=== PATIENT | male | born 1970 | race Two or more races ===

== ENCOUNTER 2025-03-02 07:35 | Inpatient (IN) | payer BC, MEDICAID, SELFPAY ==
[2025-03-02] VITALS (17 sets, daily range): BP systolic 166–230; BP diastolic 102–135; PULSE 62–92; RESP 18–94; TEMP 36.4–36.8; O2SAT 93–97
--- NOTE | 2025-03-02 07:38 | EKG_ITS ---
[facility] Test Date: 2025-03-02 Pat Name: RACHEL DUMONT Department: Room: - Gender: Male Vp Clinical Research: : 1970 Requested By: ED Temporary Provider Order Number: [id number] Reading MD: ED Temporary Provider Measurements Intervals [place] Rate: 68 P: 31 WI: 202 QRS: -11 QRSD: 102 T: 132 QT: 419 QTc: 448 Interpretive Statements SINUS RHYTHM POSSIBLE INFERIOR MYOCARDIAL INFARCTION , PROBABLY OLD [30 ms Q WAVE IN II/aVF] Compared to ECG 08/10/2023 11:27:17 Sinus bradycardia no longer present First degree AV block no longer present Myocardial infarct finding still present /store/S0/[id number].pdf
--- NOTE | 2025-03-02 07:44 | XR_ITS ---
Examination: AP chest single view Technique: Sitting portable AP chest single view Exam date and time: March 02, 2025 0751 hrs. Comparison January 27, 2023 Indication: Chest pain beginning 4:00 AM this morning Findings: Normal heart size Lungs are clear. The osseous structures are intact Impression: No active disease
[2025-03-02 08:09] LABS: Basophils % (Auto) 0 % (0-2.5); Eosinophils # (Auto) 0.3 Thou/mm3 (0.0-0.5); Eosinophils % (Auto) 4 % (0-10); Hematocrit 47.1 % (41.0-53.0); Immature Granulocytes % (Auto) 0 % (0-0); Immature Granulocytes Auto 0.02 Thou/mm3 (0.00-0.00); Lymphocytes # (Auto) 2.3 Thou/mm3 (1.0-4.8); Lymphocytes % (Auto) 29 % (10-50); Mean Corpuscular HGB Conc 36.1 g/dl (31.0-37.0); Mean Corpuscular Hemoglobin 31.8 pg (25.0-35.0); Mean Corpuscular Volume 88 fL (80-100); Monocytes # (Auto) 0.4 Thou/mm3 (0.0-0.8); Monocytes % (Auto) 6 % (0-12); Neutrophils # (Auto) 4.8 Thou/mm3 (1.8-7.7); Neutrophils % (Auto) 61 % (37-80); Nucleated Red Blood Cell % 0 /100 WBC (0); Platelet Count 212 Thou/mm3 (140-440); Red Blood Count 5.35 Miln/mm3 (4.50-5.90); White Blood Count 7.9 Thou/mm3 (3.8-10.6)
--- NOTE | 2025-03-02 08:19 | PD.EDCHEST ---
ED Chest Pain RME/HPI General Chief Complaint: Chest Pain Stated Complaint: CHEST PAIN AROUND 10:00PM Time Seen by Provider: 03/02/25 08:19 Arrival date/time: 03/02/25 07:35 Limitations: no limitations RME / HPI RME / HPI narrative: DR. FLANAGAN MAIN ED EVALUATION: 54 year old male presents to the Emergency Department accompanied by his with complaint of chest pain onset yesterday 9 PM. He states his pain is described as pressure. He states last night when it started it was intermittent lasting a few seconds but it progressively became more constant. 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 PMHx: OK in the past, x6 cardiac stents, followed by Dr. Savage, hypercholesterolemia, diabetes on Janumet and metformin, and hypertension. Umbilical hernia. No known allergies. Family history is significant for angina and diabetes from mother and OK from grandfather. Social Hx: Former smoker, quit a few months ago. No alcohol or substance use. Related Data Home Medications ?Medication ?Instructions ?Recorded ?Confirmed sitagliptin phosphate 50 1 tab PO BID 07/15/23 03/02/25 mg-metformin 1,000 mg tablet (Janumet) dapagliflozin propanediol 5 mg 5 mg PO QDAY 08/11/23 03/02/25 tablet (Farxiga) Held on 03/02/25. Instructions: Doctor's Order aspirin 81 mg chewable tablet 81 mg PO QDAY 03/02/25 03/02/25 atorvastatin 80 mg tablet 80 mg PO QDAY 03/02/25 03/02/25 metoprolol tartrate 50 mg tablet 50 mg PO BID 03/02/25 03/02/25 nitroglycerin 0.4 mg sublingual 0.4 mg buccal .3x PRN chest pain 03/02/25 03/02/25 tablet Previous Rx's ?Medication ?Instructions ?Recorded amlodipine 10 mg tablet 10 mg PO QDAY 30 days #30 tabs 07/20/23 Held on 03/02/25. Instructions: Doctor's Order atorvastatin 40 mg tablet 40 mg PO QDAY 30 days #30 tabs 07/20/23 blood sugar diagnostic (Accu-Chek #50 ea 07/20/23 Tiffanie Plus test strips) blood-glucose meter (Accu-Chek #1 ea 07/20/23 Tiffanie Plus Meter) lancing device with lancets kit #1 ea 07/20/23 (Accu-Chek FastClix Lancing Device kit) ticagrelor 90 mg tablet (Brilinta) 90 mg PO BID #60 tabs 07/20/23 Held on 03/02/25. Instructions: Doctor's Order pen needle, diabetic 31 gauge x #100 ea 07/21/2301/26 (Pen Needle) Allergies Allergy/AdvReac Type Severity Reaction Status Date / Time No Known Allergies Allergy Verified 03/02/25 10:34 Review of Systems Review of Systems Systems Reviewed: All systems reviewed, normal except as documented Narrative Review of Systems: GEN: No fever, no chills, no weight loss EYES: No discharge, no visual changes, no pain HEENT: No ear pain, no congestion, no sore throat PULM: No shortness of breath, no cough, no congestion CV: + chest pain, no dyspnea on exertion, no palpitations GI: No nausea, no vomiting, no diarrhea, no pain, no constipation : No frequency, no urgency and no dysuria MUSC/SKEL: No joint pain, no back pain SKIN: No rash PSYCH: No hallucinations, no depression HEME/LYMPH: No easy bleeding or bruising tendencies NEURO: No weakness, no headache Past Medical History Past Medical History CARDIAC: Positive Angina, Coronary Artery Disease, Hypercholesterolemia and Hypertension RESPIRATORY: Positive Pneumonia ENDOCRINE: Positive Diabetes Mellitus Type 2 OTHER HISTORY: Positive Hospitalization Family History FAMILY HISTORY: Positive Family Cardiac Disorders (dad and grandpa open heart surgery) and Family Cancer (grandma) Surgical History SURGICAL: Positive Coronary Stent (2022 x 6) and Angiogram (2022) Social History SMOKING STATUS: Former smoker SECOND HAND EXPOSURE: No SUBSTANCE USE: amphetamines (Patient is a former amphetamine user, quit 9 months ago. ) and other (Remote history of meth and cocaine use) ALCOHOL: Never ED Exam General Limitations: Present no limitations General appearance: Present alert, in no apparent distress and anxious Head Head exam: Present atraumatic, normocephalic and normal inspection Eye Eye exam: Present normal appearance, PERRL and EOMI ENT ENT exam: Present normal exam, normal oropharynx and mucous membranes moist Neck Neck exam: Present normal inspection, full ROM and trachea midline Chest Chest inspection: Present normal inspection and symmetric chest wall rise Respiratory Respiratory exam: Present normal lung sounds bilaterally Cardiovascular Cardiovascular exam: Present regular rate, normal rhythm, normal heart sounds and +S2 (S2 split sound; S1, S3 normal) Abdominal Exam Abdominal exam: Present soft, normal bowel sounds and hernia (umbilical hernia that is reducible); Absent tenderness Extremities Exam Extremities exam: Present normal inspection and full ROM Back Exam Back exam: Present normal inspection and full ROM Neurological Exam Neurological exam: Present alert, oriented X3, CN II-XII intact and reflexes normal; Absent motor sensory deficit Psychiatric Psychiatric exam: Present normal affect and normal mood Skin Skin exam: Present warm, dry, intact and normal color Course Quality Measures none Orders Category Date Time Status COVID-19 Screening Questionnaire NOW Care 03/02/25 10:03 Active Asset Protection Representative NOW Care 03/02/25 07:43 Active Continuous Pulse Oximetry ONCE Care 03/02/25 08:31 Completed Decision to Admit X1 Care 03/02/25 10:03 Completed EKG (ED ONLY) *Do not use* NOW Care 03/02/25 07:38 Completed Insert IV STAT Care 03/02/25 08:31 Active Notify provider NOW Care 03/02/25 10:01 Active Consult to Cardiology Stat Cons 03/02/25 10:04 Ordered EKG (ED Only) Stat Exams 03/02/25 07:38 Draft XR chest 1V portable Stat Exams 03/02/25 07:44 Completed B-Type Natriuretic Peptide Stat Lab 03/02/25 08:02 Completed CBC Routine Lab 03/02/25 08:02 Completed CBC Stat Lab 03/02/25 08:02 Completed Comprehensive Metabolic Panel Stat Lab 03/02/25 08:02 Completed Drug Screen,Urine Stat Lab 03/02/25 08:35 Completed Magnesium Stat Lab 03/02/25 08:02 Completed Partial Thromboplastin Time AM DRAW Lab 03/04/25 05:00 Ordered Partial Thromboplastin Time Stat Lab 03/02/25 08:02 Completed Prothrombin Time with INR AM DRAW Lab 03/04/25 05:00 Ordered Prothrombin Time with INR Stat Lab 03/02/25 08:02 Completed Troponin I Stat Lab 03/02/25 08:02 Completed Aspirin Chew Med 03/02/25 08:31 Discontinued 324 mg PO X1 ONE Clopidogrel [Plavix] Med 03/02/25 09:55 Discontinued 300 mg PO X1 ONE Heparin Inj Med 03/02/25 10:01 Discontinued 4,000 unit IV X1 ONE Heparin/D5w 25K 250 ML Ivpb [Heparin in D5w Ivpb] Med 03/02/25 10:15 Active 25,000 unit in 250 ml IV 9.07 units/kg/hr Morphine Inj Med 03/02/25 08:35 Discontinued 4 mg IVP X1 ONE Nicardipine/Ns 20Mg Ivpb [Cardene Ivpb] Med 03/02/25 10:21 Active 20 mg in 200 ml IV 5 mg/hr Nitroglycerin [Nitrostat 1/150] Med 03/02/25 08:31 Active 0.4 mg SL Q5M PRN Ondansetron Inj [Zofran Inj] Med 03/02/25 08:31 Active 4 mg IV Q1HR PRN Sodium Chloride 0.9% 500 ml [Ns] 500 ml Med 03/02/25 08:31 Discontinued IV 999 mls/hr Vital Signs Vital signs: Vital Signs Temperature 97.8 F 03/02/25 07:40 Pulse Rate 68 03/02/25 07:40 Respiratory Rate 20 03/02/25 07:40 Blood Pressure 219/135 H 03/02/25 07:40 Pulse Oximetry (%) 95 03/02/25 07:40 Oxygen Delivery Method Room Air 03/02/25 07:40 Chest Pain MDM Narrative MDM Narrative:: I, Arlene Brand, am scribing for and in the presence of Dr. Flanagan. Patient given ASA, plavix, and heparin drip. Consulted with tour driver on-call Dr. Herbert. Will admit the patient for chest pain, coronary artery disease, and hypertensive emergency. Ordered Nicardipine drip for the patient's high blood pressure at 1023 hours. Patient data External records reviewed:: [facility] previous records (Reviewed right hip surgery by Dr. Manzo, dated 08/12/23.) Clinical information provided by:: patient and spouse Social determinants that could affect healthcare access:: other (specify) (Former smoker, quit a few months ago.) Patient has the following chronic illnesses:: PMHx: OK in the past, x6 cardiac stents, followed by Dr. Savage, hypercholesterolemia, diabetes on Janumet and metformin, and hypertension. Umbilical hernia. No known allergies. Family history is significant for angina and diabetes from mother and OK from grandfather. Social Hx: Former smoker, quit a few months ago. How is presenting disease/condition affected by chronic disease/condition?: exacerbated by Evaluation data The following diagnostics were reviewed and interpreted by me:: lab results, radiology exam(s) and EKG tracing(s) (EKG#1: EKG at 0741 hours. Interpreted by me: sinus rhythm, rate 68 BMP, possible inferior OK which is probably old, no acute changes, ME interval 202 ms, QRS 102 ms, QT/QTc 419/448, P-R-T axis 31, -11, and 132) Lab and/or radiology exams considered but not ordered:: none Interpretation Summary: Procedure(s): XR chest 1V portable Accession Number(s): [id number] cc: Heber (KELLIE),David HOPKINS; Rob Guaman MD~ Examination: AP chest single view Technique: Sitting portable AP chest single view Exam date and time: March 02, 2025 0751 hrs. Comparison January 27, 2023 Indication: Chest pain beginning 4:00 AM this morning Findings: Normal heart size Lungs are clear. The osseous structures are intact Impression: No active disease Dictated By: Rob Guaman MD Medications / Prescriptions Medications or Prescriptions considered but not ordered:: none Medication administrations:: Medication Administration History Acetaminophen (Acetaminophen 325 Mg Tablet) 650 mg PO Q6H PRN PRN Reason: Mild Pain 1-3 or Fever >100.3 Stop: 04/01/25 10:20 Aspirin (Aspirin Ec 81 Mg Tabec) 81 mg PO QDAY [facility] Stop: 04/02/25 08:59 Carvedilol (Carvedilol 3.125 Mg Tablet) 6.25 mg PO BIDWM [facility] Stop: 04/01/25 17:29 Last Admin: 03/02/25 19:42 Dose: 6.25 mg Documented By: EF Clopidogrel Bisulfate (Clopidogrel Bisulfate 75 Mg Tablet) 75 mg PO QDAY [facility] Stop: 04/02/25 08:59 Dextrose (Dextrose 50%-Water Inj 50 Ml Syringe) 50 ml IV Q15MIN PRN PRN Reason: BG <50 OR BG <70 & pt unresponsive Stop: 04/01/25 10:26 Dextrose (Dextrose 50%-Water Inj 50 Ml Syringe) 25 ml IV Q15MIN PRN PRN Reason: BG 50-70 responsive npo pt Stop: 04/01/25 10:26 Glucagon (Glucagon Inj 1 Mg Vial) 1 mg IM Q15MIN PRN PRN Reason: BG <70, and no IV access Hydralazine HCl (Hydralazine Inj 20 Mg/Ml Vial) 10 mg IVP Q4HR PRN PRN Reason: Hypertension Stop: 04/01/25 10:25 Last Admin: 03/02/25 20:34 Dose: 10 mg Documented By: Admin: 03/02/25 11:29 Dose: 10 mg Documented By: NERY Heparin Sodium/Dextrose (Heparin In D5w Ivpb) 25,000 unit in 250 mls @ 10.038 mls/hr IV .Q24H [facility]IONEL; Protocol Stop: 03/16/25 10:14 Last Titration: 03/03/25 06:00 Dose: 0 units/kg/hr, 0 mls/hr Documented By: Co-signed By: WB Admin: 03/03/25 04:27 Dose: 16 units/kg/hr, 17.708 mls/hr Documented By: Co-signed By: SS Titration: 03/03/25 04:27 Dose: Infused Documented By: Co-signed By: SS Titration: 03/03/25 03:00 Dose: 16 units/kg/hr, 17.708 mls/hr Documented By: Co-signed By: SA Titration: 03/02/25 20:35 Dose: 16 units/kg/hr, 17.708 mls/hr Documented By: AILYN Co-signed By: EE Admin: 03/02/25 11:51 Dose: 9.07 units/kg/hr, 10.038 mls/hr Documented By: NERY Co-signed By: NERIS Nicardipine/Sodium Chloride (Cardene Ivpb) 20 mg in 200 mls @ 50 mls/hr IV .Q4H PRN; Protocol PRN Reason: PER PROTOCOL Stop: 04/01/25 10:20 Insulin Human Lispro (Insulin Lispro (Admelog) 1 Unit/0.01 Ml Unit) 0 unit SC Q6HR LIONEL; Protocol Stop: 04/01/25 11:59 Last Admin: 03/03/25 05:52 Dose: 2 unit Documented By: Co-signed By: JALEESA Admin: 03/03/25 00:18 Dose: 2 unit Documented By: Co-signed By: WB Admin: 03/02/25 19:42 Dose: 2 unit Documented By: AILYN Co-signed By: LARON Admin: 03/02/25 12:37 Dose: 1 unit Documented By: NERY Co-signed By: ZEKE Morphine Sulfate (Morphine Sulf Inj 10 Mg/Ml Vial) 1 mg IVP Q4HR PRN PRN Reason: PAIN SCALE 7-10 (Severe Stop: 03/07/25 10:20 Last Admin: 03/03/25 05:44 Dose: 1 mg Documented By: Admin: 03/02/25 15:24 Dose: 1 mg Documented By: NERY Nitroglycerin (Nitroglycerin 0.4 Mg Subl Btl #25) 0.4 mg SL Q5M PRN PRN Reason: CHEST PAIN Last Admin: 03/02/25 09:03 Dose: 0.4 mg Documented By: NERY Ondansetron HCl (Ondansetron Inj 2 Mg/Ml Inj 2 Ml) 4 mg IV Q1HR PRN PRN Reason: PERSISTENT NAUSEA OR VOMITING Last Admin: 03/02/25 09:02 Dose: 4 mg Documented By: NERY Pantoprazole Sodium (Pantoprazole 40 Mg Tablet) 40 mg PO QDAY [facility] Stop: 04/01/25 10:29 Last Admin: 03/02/25 11:39 Dose: 40 mg Documented By: NERY Sennosides (Senna Tablet) 1 tab PO QDAY [facility]ION[facility]; Protocol Stop: 04/02/25 08:59 Discontinued Medications Aspirin (Aspirin 81 Mg Chew) 324 mg PO X1 ONE Stop: 03/02/25 08:32 Last Admin: 03/02/25 08:57 Dose: 324 mg Documented By: NERY Atorvastatin Calcium (Atorvastatin Calcium 20 Mg Tablet) 80 mg PO X1 ONE Stop: 03/02/25 10:29 Last Admin: 03/02/25 11:47 Dose: 80 mg Documented By: NERY Clopidogrel Bisulfate (Clopidogrel Bisulfate 75 Mg Tablet) 300 mg PO X1 ONE Stop: 03/02/25 09:56 Last Admin: 03/02/25 11:45 Dose: 300 mg Documented By: NERY Heparin Sodium (Porcine) (Heparin Sod Inj 5000 Unit/Ml Vial) 4,000 unit IV X1 ONE; Protocol Stop: 03/02/25 10:02 Last Admin: 03/02/25 11:33 Dose: 4,000 unit Documented By: NERY Co-signed By: AA Heparin Sodium (Porcine) (Heparin Sod Inj 5000 Unit/Ml Vial) 4,000 unit IVP X1 ONE Stop: 03/02/25 20:29 Last Admin: 03/02/25 20:35 Dose: 4,000 unit Documented By: EF Co-signed By: EE Hydromorphone HCl (Hydromorphone Inj 2 Mg/Ml Vial) 1 mg IVP X1 ONE Stop: 03/02/25 10:34 Last Admin: 03/02/25 11:20 Dose: 1 mg Documented By: NERY Sodium Chloride (Ns) 500 mls @ 999 mls/hr IV .Q31M ONE Stop: 03/02/25 09:01 Last Infusion: 03/02/25 10:28 Dose: Infused Documented By: Admin: 03/02/25 09:03 Dose: 999 mls/hr Documented By: NERY Metoprolol Tartrate (Metoprolol Tartrate 25 Mg Tablet) 25 mg PO BID [facility] Stop: 04/01/25 10:44 Last Admin: 03/02/25 11:37 Dose: 25 mg Documented By: NERY Morphine Sulfate (Morphine Sulf Inj 10 Mg/Ml Vial) 4 mg IVP X1 ONE Stop: 03/02/25 08:36 Last Admin: 03/02/25 08:59 Dose: 4 mg Documented By: NERY Potassium Chloride (Potassium Chloride 20 Meq Tabcr) 40 meq PO X1 ONE Stop: 03/02/25 14:54 Last Admin: 03/02/25 15:15 Dose: 40 meq Documented By: NERY see above Consultations Consultation(s) initiated? (list below): Yes Consultation #1 (Physician, Specialty, Details): Discussed test HPI, PMHx, lab, radiology results and/or management with Dr. Herbert. Following his recommendations, including giving ASA, plavix, and heparin drip. Will consult an admission to the hospitalist. Time: 09:58 Consultation #2 (Physician, Specialty, Details): Discussed test HPI, PMHx, lab, radiology results and/or management with hospitalist. Will admit for further evaluation and management. Accepts patient for admission. Time: 10:06 Diagnosis Chest Pain Differential Diagnosis: unstable angina pectoris, atypical chest pain, costochondritis and chest pain Most likely diagnosis given after review of the tests above:: Chest pain Coronary artery disease Hypertensive emergency Anxiety Admission Indicated Admission indicated?: indicated Admission Request Was there a request for admission?: Yes Admission Attestation Admission request attestation: Discussed case with [] from Hospitalist service regarding admission. Discussed patients ED course, exam findings, labs, and radiology results. The Hospitalist [agrees,declines] to accept the patient for admission. Disposition Plan Disposition Plan: Admit Critical Care Time Critical Care Time Critical Care Time: Yes Total Critical Care Time (min.): 60 Attestation: The high probability of sudden, clinically significant deterioration in the patient?s condition required the highest level of my preparedness to intervene urgently. The services I provided to this patient were to treat and/or prevent clinically significant deterioration. Services included the following: chart data review, reviewing nursing notes and/or old charts, documentation time, jd edwards consultant collaboration regarding findings and treatment options, medication orders and management, direct patient care, vital sign assessments and ordering, interpreting and reviewing diagnostic studies and lab tests. Aggregate critical care time includes only time during which I was engaged in work directly related to the patient?s care, as described above, whether at bedside or elsewhere in the Emergency Department. It did not include time spent performing other reported procedures or the services of residents, students, nurses or physician assistants. Discharge Plan Plan Patient Disposition: Admit Acute Care w/in Hospital Problem List Clinical Impression: Chest pain, Coronary artery disease, Anxiety, Hypertensive emergency
[2025-03-02 08:32] LABS: B-Type Natriuretic Peptide 175 pg/mL (0-100)
[2025-03-02 08:43] LABS: Partial Thromboplastin Time 27.6 Seconds (22.0-36.0); Prothrombin Time 11.2 Seconds (9.0-12.2)
[2025-03-02 08:50] LABS: Alanine Aminotransferase 29 U/L (10-49); Albumin, Serum 4.4 gm/dL (3.5-5.0); Albumin/Globulin Ratio 1.7 (1.2-2.2); Alkaline Phosphatase 119 U/L (46-116); Anion Gap 6 (7-16); Aspartate Amino Transferase 18 U/L (0-34); BUN/Creatinine Ratio 13 Ratio (12-20); Bilirubin,Total 1.6 mg/dL (0.3-1.2); Blood Urea Nitrogen 16 mg/dL (9-23); Calcium 9.2 mg/dL (8.3-10.6); Calcium (Corrected) 9.2 mg/dL (8.5-10.1); Carbon Dioxide 29.6 mMol/L (20.0-31.0); Chloride 104 mMol/L (98-107); Creatinine (Component) 1.2 mg/dL (0.6-1.3); Estimated Creatinine Clearance 87.3 mL/min (>60); Globulin 2.6 gm/dL (2.3-3.5); Glucose 217 mg/dL (74-106); Magnesium 1.9 mg/dL (1.6-2.6); Osmolality,Calculated 287 (275-295); Potassium 3.7 mMol/L (3.4-5.1); Sodium 140 mMol/L (136-145); eGFR > 60 See Note
[2025-03-02 08:52] LABS: Troponin I 0.052 ng/mL (0.0-0.045)
[2025-03-02] MEDS: ASPIRIN 81 MG CHEW 324 MG PO (08:57)
[2025-03-02] MEDS: MORPHINE SULF INJ 10 MG/ML VIAL 4 MG IVP (08:59)
[2025-03-02] MEDS: ONDANSETRON INJ 2 MG/ML INJ 2 ML 4 MG IV (09:02)
[2025-03-02] MEDS: SODIUM CHLORIDE 0.9% 500 ML 500 ML 999 ML IV (09:03)
[2025-03-02] MEDS: NITROGLYCERIN 0.4 MG SUBL BTL #25 SL (09:03)
[2025-03-02 09:54] LABS: Amphetamine/Methamp Scrn,U Negative (Negative); Barbiturate Screen,Urine Negative (Negative); Benzodiazepines Screen,Urine Negative (Negative); Benzoylecgonine Screen, Ur Negative (Negative); Fentanyl Screen,Urine Negative (Negative); Opiate Screen,Urine Negative (Negative); THC Screen,Urine Negative (Negative)
[2025-03-02 10:26] LABS: Basophils % (Auto) 0 % (0-2.5); Eosinophils # (Auto) 0.3 Thou/mm3 (0.0-0.5); Eosinophils % (Auto) 4 % (0-10); Hematocrit 48.5 % (41.0-53.0); Hemoglobin 16.9 g/dL (13.5-16.0); Immature Granulocytes % (Auto) 0 % (0-0); Immature Granulocytes Auto 0.02 Thou/mm3 (0.00-0.00); Lymphocytes # (Auto) 2.2 Thou/mm3 (1.0-4.8); Lymphocytes % (Auto) 29 % (10-50); Mean Corpuscular HGB Conc 34.8 g/dl (31.0-37.0); Mean Corpuscular Hemoglobin 31.6 pg (25.0-35.0); Mean Corpuscular Volume 91 fL (80-100); Monocytes # (Auto) 0.5 Thou/mm3 (0.0-0.8); Monocytes % (Auto) 6 % (0-12); Neutrophils # (Auto) 4.8 Thou/mm3 (1.8-7.7); Neutrophils % (Auto) 61 % (37-80); Nucleated Red Blood Cell % 0 /100 WBC (0); Platelet Count 209 Thou/mm3 (140-440); RDW Standard Deviation 43.8 fL (35.1-43.9); Red Blood Count 5.35 Miln/mm3 (4.50-5.90); White Blood Count 7.8 Thou/mm3 (3.8-10.6)
--- NOTE | 2025-03-02 11:19 | PC.CC ---
Patient is a 54 year-old male who presents to the hospital for Chest Pain. Yolanda CROFT made [id number] contact with patient. ASW introduced self, role, and reason for visit. Patient appeared alert and oriented to self, location, and situation. Patient was pleasant and engaged in initial assessment. Patient confirmed information on demographics and reports to living with , Torsten Reynolds . Patient reports that in the event he is unable to make his own medical decisions his would be his medical decision maker. Patient is employed at [employer]. At home patient ambulates independently and is able to complete his own ADLs. Patient does not require any DME. Patient receives primary care with Telma Snyder and uses [facility] for prescription medications. Upon discharge the patient plans to return back home. account services coordinator to follow up with any discharge needs.
[2025-03-02] MEDS: HYDROmorphone INJ 2 MG/ML VIAL 1 MG IVP (11:20)
[2025-03-02 11:21] LABS: Troponin I 1.937 ng/mL (0.0-0.045)
[2025-03-02] MEDS: hydrALAZINE INJ 20 MG/ML VIAL 10 MG IVP ×2 (11:29→20:34)
[2025-03-02] MEDS: HEPARIN SOD INJ 5000 UNIT/ML VIAL 4000 UNIT IV (11:33)
[2025-03-02] MEDS: METOPROLOL TARTRATE 25 MG TABLET PO (11:37)
[2025-03-02] MEDS: PANTOPRAZOLE 40 MG TABLET PO (11:39)
[2025-03-02] MEDS: CLOPIDOGREL BISULFATE 75 MG TABLET 300 MG PO (11:45)
[2025-03-02] MEDS: ATORVASTATIN CALCIUM 20 MG TABLET 80 MG PO (11:47)
[2025-03-02] MEDS: Heparin/D5w 25K 250 ML Ivpb 25,000 UNIT/250 ML BAG 10.038 UNIT IV (11:51)
[2025-03-02] MEDS: INSULIN LISPRO (AdmeLOG) 1 UNIT/0.01 ML UNIT SC ×2 (12:37→19:42)
--- NOTE | 2025-03-02 13:06 | PD.RESHP ---
Documentation for date of: 03/02/25 [facility] History of Present Illness History of present illness: CC: Chest pain Patient is a 54-year-old male with a past medical history of hypertension, hyperlipidemia, diabetes mellitus type 2 [id number] (Janumet), CAD with preserved ejection fraction-right coronary artery proximal, distal mid right coronary artery, and stent placement of the circumflex artery obtuse marginal branch. Patient presented to the emergency room on 03/02/2025 with a chief complaint of chest pain that came on suddenly overnight while at rest. Patient describes typical chest pain that was sharp and intermitted radiating from left chest to left arm. Pain is not elicited by deep palpation. Patient denied nausea or vomiting. Denied SOB. Denied any recent sick contacts. Patient follows Dr. Alvarez who performed PCI in 2022 for multi-vessel disease. ER Course: On arrival, patient was reported to have hypertensive urgency with a blood pressure of 219/135, HR 68, RR 20, spO 95% RA. Polycythemia noted on CBC w/ hgb of 16.9, Na 140, Potassium 3.7, BUN 16, Cr 1.2, GFR >60, Glucose 217, total bili 1.6, AST and ALT within normal limits. EKG sinus rhythm with possible q waves; Troponin 0.052, repeat 1.937, BNP 175. CXr: unremarkable Medication: Aspirin 324 mg PO, Morphine, Nitroglycerin 0.4 mg, and NS Cardiology consulted: follows Dr. Alvarez-->Dr. Guo covering for Dr. Alvarez. Admitted on 03/02/2025 for NSTEMI with chest pain. PMH: HTN HLD DM type II, non insulin dependent CAD, multi-vessel disease Past Surgical History: CABG (2022) Home Medication: Aspirin 81 Atorvastatin 80 mg Janumet Denied Amlodipine Social History: History of Alcohol Use & Former Smoker History of Meth Use Disorder Allergies: NOne Code Status: Full Code Review of Systems Review of Systems Narrative Review of Systems: General appearance: NO weight change, NO fatigue, NO weakness, NO fever, NO chills, NO night sweats, No cough Skin: NO rash, NO itching, NO sores, NO moles HEENT: NO Trauma, NO nausea, NO vomiting, NO visual changes, NO blurry vision, NO double vision, NO tinnitus, NO vertigo, NO ear discharge, NO rhinorrhea, NO stuffiness, NO sneezing, NO allergy, NO epistaxis. NO Hoarseness, NO sore throat, NO swollen neck. Cardiac: Yes, sharp chest pain. NO Palpitations, NO dyspnea on exertion, NO orthopnea, NO paroxysmal nocturnal dyspnea, NO edema Respiratory: NO Shortness of Breath, NO Wheezing, NO Cough, NO Sputum, NO hemoptysis GI:NO appetite, NO nausea, NO vomiting, NO dysphagia, NO changes in bowel frequency, NO stool color, NO diarrhea, NO constipation, NO hemetemesis, NO hemorrhoids, NO melena, NO hematechezia, NO abdominal pain, NO jaundice Renal: NO frequency, NO hesitancy, NO urgency, NO hematuria, NO nocturia, NO incontinence MSK: NO muscle weakness, NO gout, NO arthritis, NO muscle stiffness Neuro: NO headaches, NO tremors, NO weakness, NO paralysis, NO seizures, NO loss of consciousness, NO numbness. Hem: NO anemia, NO easy bruising/bleeding, NO petechiae, NO purpura Endo: NO heat/cold intolerance, NO excessive sweating, NO polyuria, NO polydipsia, NO polyphagia, NO thyroid problems, NO diabetes Pysch: NO mood, NO anxiety, NO depression Exam Vital Signs Temp Pulse Resp BP Pulse Ox O2 Del Method 98.3 F 77 22 H 189/110 H 94 L Room Air 03/02/25 12:22 03/02/25 12:22 03/02/25 12:22 03/02/25 12:22 03/02/25 12:03/02/25 12:22 Narrative Exam General Appearance: Alert & Oriented X3, well-nourished male who is lying in bed in mild discomfort HEENT: Skull symmetrical and atraumatic. Conjunctivae pin and moist. Pupils equal, round, reactive to light and accommodation (PERRL). External ear without lesion or discharge. Straight, nares patient, mucosa pink, no discharge. No thyroid nodule appreciated. No cervical lymphadenopathy. Cardio: Normal Rate and Rhythm with S1 and S2 heart sounds. No murmurs or extra heart sounds auscultated. No bruits on carotid auscultation. No peripheral edema or cyanosis. Lungs: Symmetric with good expansion. Chest and back non-tender. Breath sounds vesicular without crackles, wheezing or rhonchi Abdomen: Non-tender, Non-distended, Normal Reactive Bowel Sounds Neuro: Alert, cooperative, oriented to person, place, and time. Speech clear. CN grossly intact. Upper motor strength 5/5 and Lower motor strength 5/5. Sensation intact. Results: Labs 03/03/25 05:23 03/03/25 05:23 Labs: Short CBC 03/02/25 03/02/25 03/02/25 Range/Units 08:02 08:02 08:02 WBC 7.9 7.8 (3.8-10.6) Thou/mm3 Hgb 17.0 H 16.9 H (13.5-16.0) g/dL Hct 47.1 (41.0-53.0) % Plt Count (140-440) Thou/mm3 03/02/25 03/02/25 Range/Units 08:02 08:02 WBC (3.8-10.6) Thou/mm3 Hgb (13.5-16.0) g/dL Hct 48.5 (41.0-53.0) % Plt Count 212 209 (140-440) Thou/mm3 BMP 03/02/25 08:02 Sodium 140 Potassium 3.7 Chloride 104 Carbon Dioxide 29.6 BUN 16 Creatinine 1.2 Glucose 217 H Calcium 9.2 Cardiac Enzymes 03/02/25 03/02/25 Range/Units 08:02 10:38 Troponin I 0.052 H* 1.937 H* D (0.0-0.045) ng/mL Liver Function 03/02/25 Range/Units 08:02 Total Bilirubin 1.6 H (0.3-1.2) mg/dL AST 18 (0-34) U/L ALT 29 (10-49) U/L Alkaline Phosphatase 119 H (46-116) U/L Albumin 4.4 (3.5-5.0) gm/dL Quality Measures Quality Measures none Medications Home Medications and Allergies Home Medications ?Medication ?Instructions ?Recorded ?Confirmed ?Type sitagliptin phosphate 50 1 tab PO BID 07/15/23 03/02/25 History mg-metformin 1,000 mg tablet (Janumet) dapagliflozin propanediol 5 mg 5 mg PO QDAY 08/11/23 03/02/25 History tablet (Farxiga) Held on 03/02/25. Instructions: Doctor's Order aspirin 81 mg chewable tablet 81 mg PO QDAY 03/02/25 03/02/25 History atorvastatin 80 mg tablet 80 mg PO QDAY 03/02/25 03/02/25 History metoprolol tartrate 50 mg tablet 50 mg PO BID 03/02/25 03/02/25 History nitroglycerin 0.4 mg sublingual 0.4 mg buccal .3x PRN chest pain 03/02/25 03/02/25 History tablet Allergies Allergy/AdvReac Type Severity Reaction Status Date / Time No Known Allergies Allergy Verified 03/02/25 10:34 Visit Medications Acetaminophen (Acetaminophen 325 Mg Tablet) 650 mg PO Q6H PRN PRN Reason: Mild Pain 1-3 or Fever >100.3 Stop: 04/01/25 10:20 Aspirin (Aspirin Ec 81 Mg Tabec) 81 mg PO QDAY [facility] Stop: 04/02/25 08:59 Clopidogrel Bisulfate (Clopidogrel Bisulfate 75 Mg Tablet) 75 mg PO QDAY [facility] Stop: 04/02/25 08:59 Dextrose (Dextrose 50%-Water Inj 50 Ml Syringe) 50 ml IV Q15MIN PRN PRN Reason: BG <50 OR BG <70 & pt unresponsive Stop: 04/01/25 10:26 Dextrose (Dextrose 50%-Water Inj 50 Ml Syringe) 25 ml IV Q15MIN PRN PRN Reason: BG 50-70 responsive npo pt Stop: 04/01/25 10:26 Glucagon (Glucagon Inj 1 Mg Vial) 1 mg IM Q15MIN PRN PRN Reason: BG <70, and no IV access Hydralazine HCl (Hydralazine Inj 20 Mg/Ml Vial) 10 mg IVP Q4HR PRN PRN Reason: Hypertension Stop: 04/01/25 10:25 Last Admin: 03/02/25 11:29 Dose: 10 mg Heparin Sodium/Dextrose (Heparin In D5w Ivpb) 25,000 unit in 250 mls @ 10.038 mls/hr IV .Q24H [facility]; Protocol Stop: 03/16/25 10:14 Last Admin: 03/02/25 11:51 Dose: 9.07 units/kg/hr, 10.038 mls/hr Nicardipine/Sodium Chloride (Cardene Ivpb) 20 mg in 200 mls @ 50 mls/hr IV .Q4H PRN; Protocol PRN Reason: PER PROTOCOL Stop: 04/01/25 10:20 Insulin Human Lispro (Insulin Lispro (Admelog) 1 Unit/0.01 Ml Unit) 0 unit SC Q6HR [facility]; Protocol Stop: 04/01/25 11:59 Last Admin: 03/02/25 12:37 Dose: 1 unit Metoprolol Tartrate (Metoprolol Tartrate 25 Mg Tablet) 25 mg PO BID [facility] Stop: 04/01/25 10:44 Last Admin: 03/02/25 11:37 Dose: 25 mg Morphine Sulfate (Morphine Sulf Inj 10 Mg/Ml Vial) 1 mg IVP Q4HR PRN PRN Reason: PAIN SCALE 7-10 (Severe Stop: 03/07/25 10:20 Nitroglycerin (Nitroglycerin 0.4 Mg Subl Btl #25) 0.4 mg SL Q5M PRN PRN Reason: CHEST PAIN Last Admin: 03/02/25 09:03 Dose: 0.4 mg Ondansetron HCl (Ondansetron Inj 2 Mg/Ml Inj 2 Ml) 4 mg IV Q1HR PRN PRN Reason: PERSISTENT NAUSEA OR VOMITING Last Admin: 03/02/25 09:02 Dose: 4 mg Pantoprazole Sodium (Pantoprazole 40 Mg Tablet) 40 mg PO QDAY [facility] Stop: 04/01/25 10:29 Last Admin: 03/02/25 11:39 Dose: 40 mg Sennosides (Senna Tablet) 1 tab PO QDAY [facility]; Protocol Stop: 04/02/25 08:59 Discontinued Medications Aspirin (Aspirin 81 Mg Chew) 324 mg PO X1 ONE Stop: 03/02/25 08:32 Last Admin: 03/02/25 08:57 Dose: 324 mg Atorvastatin Calcium (Atorvastatin Calcium 20 Mg Tablet) 80 mg PO X1 ONE Stop: 03/02/25 10:29 Last Admin: 03/02/25 11:47 Dose: 80 mg Clopidogrel Bisulfate (Clopidogrel Bisulfate 75 Mg Tablet) 300 mg PO X1 ONE Stop: 03/02/25 09:56 Last Admin: 03/02/25 11:45 Dose: 300 mg Heparin Sodium (Porcine) (Heparin Sod Inj 5000 Unit/Ml Vial) 4,000 unit IV X1 ONE; Protocol Stop: 03/02/25 10:02 Last Admin: 03/02/25 11:33 Dose: 4,000 unit Hydromorphone HCl (Hydromorphone Inj 2 Mg/Ml Vial) 1 mg IVP X1 ONE Stop: 03/02/25 10:34 Last Admin: 03/02/25 11:20 Dose: 1 mg Sodium Chloride (Ns) 500 mls @ 999 mls/hr IV .Q31M ONE Stop: 03/02/25 09:01 Last Infusion: 03/02/25 10:28 Dose: Infused Morphine Sulfate (Morphine Sulf Inj 10 Mg/Ml Vial) 4 mg IVP X1 ONE Stop: 03/02/25 08:36 Last Admin: 03/02/25 08:59 Dose: 4 mg Assessment & Plan Plan Patient is a 54-year-old male with a past medical history of hypertension, hyperlipidemia, diabetes mellitus type 2 [id number] (Janumet), CAD w/ multi-vessel disease who was admitted don 03/02/2025 with typical chest pain w/ NSTEMI type I vs type II. #NSTEMI type I versus type II #Chest pain #CAD multi-vessel disease #Hyperlipidemia NSTEMI type I likely given typical chest pain, uptrending troponin levels, and previous history of [id number] disease who was recommended to follow up with CABG vs NSTEMI type II demand ischemia form hypertensive urgergency vs Unstable Angina. Diagnostics: EKG Q waves noted, sinus rhythm Plan -NPO after midnight -Morphine and Nitro for pain management -Atorvastatin 80 mg HS & Aspirin 81 mg Once daily, Aspirin 325 mg X 1 ER -Carvedilol 6.25 BID -Plavix 75 mg Qday -Lipid Panel AM -Consult Cardiology, appreciate recommendations, Dr. Wilkes #Hypertensive urgency #Hypertension Patient presented with hypertensive urgency on admission and denied taking any anti-hypertensive medication at home. Plan -JESUS/ARBS tomorrow, starting patient on carvedilol today -Monitor BP -Hydralazine PRN #Diabetes mellitus type 2, [id number] Past medical history of diabetes mellitus, non-insulin dependent with a previous A1c of 9.6 (07/2023). Patient's home medication of Janumet (metformin and sitagliptin). Plan -Hold Janumet -Sliding Scale -Monitor Fasting Blood glucose -A1c AM #Polycythemia Polycythemia likely secondary to body habitus vs hemoconcentrated vs less likely secondary to primary mutation such as SILVA . Continue to monitor Plan -Monitor -No acute intervention Health Maintenance: Disp: Pt is currently admitted to floors for further management of Dr. Pope FEN: cardiac-->NPO after midnight, cath on Monday DVT: heparin ACS Code: Full code - The patient's plan was discussed with attending Dr. Toshia Ruff MD PGY1 Internal Medicine Attending Provider Attestation/Addendum I reviewed labs, imaging, EKG, home medications and prior available records. Face to face evaluation was performed by me. I have personally examined the patient and discussed assessment and plan with the IM team. I reviewed the resident note and agree with the plan with exceptions as below. Hypertensive emergency Non-STEMI Uncontrolled diabetes mellitus with hyperglycemia Essential hypertension Start aspirin and Plavix Start hypertensive atorvastatin Start heparin drip She received IV hydralazine and was started on nicardipine. Weaned off nicardipine drip and started p.o. Coreg per cardiology recommendations Continue to trend troponin Started sliding scale insulin. Monitor fingersticks Cardiology consulted
--- NOTE | 2025-03-02 14:48 | ESCONSULT_ITS ---
HPI Data of Consult Requesting Physician: Bulmaro Pope MD Admitting Provider: Bulmaro Pope MD Attending Provider: Bulmaro Pope MD Primary Care Provider: SOPHY Fagan Consult Narrative History of present illness: Ramón Orourke is a 54-year-old male with medical history of multivessel CAD (status-post stenting of LCx and RCA in [address] Alvarez), hypertension, hyperlipidemia, and type 2 diabetes who presents on 03/02/2025 with chest pain. States that on evening of 03/01, he was at work, lifted a box and started to feel left-sided chest pressure that did not radiate and subsided with rest. Afterwards, he continued working and chest discomfort would return with activity and again subsided with rest.also states that he would take nitroglycerin that would also alleviate discomfort. Following morning, patient woke up with what he described now as chest pain that radiated to his left arm, 9/10 in intensity and did not subside, prompting him to visit the ED. Of note, patient underwent LHC in [address] Alvarez and found to have multivessel disease and underwent stenting of LCx and RCA. Per patient, he would follow-up with Dr. Alvarez monthly and last patient was 4 months ago and has not been able to return due to insurance issues. Additionally, patient states that he is not 100% compliant with his medications. In the ED, patient now states that he is short of breath after walking to and from the bathroom but denies having experienced nausea, vomiting, diaphoresis, palpitations, PND, orthopnea, or bilateral lower extremity swelling since onset of chest discomfort. In ED, initial vitals showed BP 219/135, saturating 94% on room air, afebrile, pulse 68. CBC unremarkable, coag panel unremarkable, CHEM panel showed troponin 0.05 -> 1.9, BNP 175, glucose 217. EKG showed NSR with T wave inversions in leads I and aVL (present in EKG from 2022), ? incomplete LBBB in lead V6. Given loading dose aspirin 324 mg x 1, clopidogrel 300 mg x 1, heparin drip started, morphine 4 mg x 1, morphine 1 mg x 1, Dilaudid 1 mg x 1, nitroglycerin x 1, metoprolol tartrate 25 mg, hydralazine 10 mg IV. Admitted and cardiology consulted for ACS workup. PMHx: multivessel CAD (status-post stenting of LCx and RCA in [address] 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 [employer] PSHx: LCH in 2022 cc:: cc: Bulmaro Pope MD Review of Systems Review of Systems Systems Reviewed: All systems reviewed, normal except as documented Exam Vital Signs Temp Pulse Resp BP Pulse Ox O2 Del Method 98.3 F 77 22 H 189/110 H 94 L Room Air 03/02/25 12:22 03/02/25 12:22 03/02/25 12:22 03/02/25 12:22 03/02/25 12:22 03/02/25 12:22 Narrative Exam General: AOx3, mild distress, able to speak full sentences on roomair HEENT: NC/AT, mucous membranes moist, bilateral sclera anicteric Cardiovascular: regular rate and rhythm, S1/S2 present, no murmurs appreciated Pulmonary: clear to auscultation bilaterally, no rales/rhonchi/wheezes Abdominal: soft, non-tender, non-distended, no rebound/guarding, normal bowel sounds present Musculoskeletal: normal ROM, no peripheral edema Skin: warm and dry, intact, no rashes Neuro: CN II-XII intact, no focal deficits Results Labs 03/02/25 08:02 03/02/25 08:02 Labs: Short CBC 03/02/25 03/02/25 03/02/25 Range/Units 08:02 08:02 08:02 WBC 7.9 7.8 (3.8-10.6) Thou/mm3 Hgb 17.0 H 16.9 H (13.5-16.0) g/dL Hct 47.1 (41.0-53.0) % Plt Count (140-440) Thou/mm3 03/02/25 03/02/25 Range/Units 08:02 08:02 WBC (3.8-10.6) Thou/mm3 Hgb (13.5-16.0) g/dL Hct 48.5 (41.0-53.0) % Plt Count 212 209 (140-440) Thou/mm3 BMP 03/02/25 08:02 Sodium 140 Potassium 3.7 Chloride 104 Carbon Dioxide 29.6 BUN 16 Creatinine 1.2 Glucose 217 H Calcium 9.2 Cardiac Enzymes 03/02/25 03/02/25 Range/Units 08:02 10:38 Troponin I 0.052 H* 1.937 H* D (0.0-0.045) ng/mL Liver Function 03/02/25 Range/Units 08:02 Total Bilirubin 1.6 H (0.3-1.2) mg/dL AST 18 (0-34) U/L ALT 29 (10-49) U/L Alkaline Phosphatase 119 H (46-116) U/L Albumin 4.4 (3.5-5.0) gm/dL Quality Measures Quality Measures none Medications Home Medications and Allergies Home Medications ?Medication ?Instructions ?Recorded ?Confirmed ?Type sitagliptin phosphate 50 1 tab PO BID 07/15/23 History mg-metformin 1,000 mg tablet (Janumet) dapagliflozin propanediol 5 mg 5 mg PO QDAY 08/11/23 0 08/11/23 History tablet (Farxiga) aspirin 81 mg chewable tablet 03/02/25 History atorvastatin 80 mg tablet mg 03/02/25 History nitroglycerin 0.4 mg sublingual mg buccal 03/02/25 Hi story tablet Allergies Allergy/AdvReac Type Severity Reaction Status Date / Time No Known Allergies Allergy Verified 03/02/25 10:34 Visit Medications Acetaminophen (Acetaminophen 325 Mg Tablet) 650 mg PO Q6H PRN PRN Reason: Mild Pain 1-3 or Fever >100.3 Stop: 04/01/25 10:20 Aspirin (Aspirin Ec 81 Mg Tabec) 81 mg PO QDAY [facility] Stop: 04/02/25 08:59 Carvedilol (Carvedilol 3.125 Mg Tablet) 6.25 mg PO BIDWM [facility] Stop: 04/01/25 17:29 Clopidogrel Bisulfate (Clopidogrel Bisulfate 75 Mg Tablet) 75 mg PO QDAY [facility] Stop: 04/02/25 08:59 Dextrose (Dextrose 50%-Water Inj 50 Ml Syringe) 50 ml IV Q15MIN PRN PRN Reason: BG <50 OR BG <70 & pt unresponsive Stop: 04/01/25 10:26 Dextrose (Dextrose 50%-Water Inj 50 Ml Syringe) 25 ml IV Q15MIN PRN PRN Reason: BG 50-70 responsive npo pt Stop: 04/01/25 10:26 Glucagon (Glucagon Inj 1 Mg Vial) 1 mg IM Q15MIN PRN PRN Reason: BG <70, and no IV access Hydralazine HCl (Hydralazine Inj 20 Mg/Ml Vial) 10 mg IVP Q4HR PRN PRN Reason: Hypertension Stop: 04/01/25 10:25 Last Admin: 03/02/25 11:29 Dose: 10 mg Heparin Sodium/Dextrose (Heparin In D5w Ivpb) 25,000 unit in 250 mls @ 10.038 mls/hr IV .Q24H LIONEL; Protocol Stop: 03/16/25 10:14 Last Admin: 03/02/25 11:51 Dose: 9.07 units/kg/hr, 10.038 mls/hr Nicardipine/Sodium Chloride (Cardene Ivpb) 20 mg in 200 mls @ 50 mls/hr IV .Q4H PRN; Protocol PRN Reason: PER PROTOCOL Stop: 04/01/25 10:20 Insulin Human Lispro (Insulin Lispro (Admelog) 1 Unit/0.01 Ml Unit) 0 unit SC Q6HR LIONEL; Protocol Stop: 04/01/25 11:59 Last Admin: 03/02/25 12:37 Dose: 1 unit Morphine Sulfate (Morphine Sulf Inj 10 Mg/Ml Vial) 1 mg IVP Q4HR PRN PRN Reason: PAIN SCALE 7-10 (Severe Stop: 03/07/25 10:20 Nitroglycerin (Nitroglycerin 0.4 Mg Subl Btl #25) 0.4 mg SL Q5M PRN PRN Reason: CHEST PAIN Last Admin: 03/02/25 09:03 Dose: 0.4 mg Ondansetron HCl (Ondansetron Inj 2 Mg/Ml Inj 2 Ml) 4 mg IV Q1HR PRN PRN Reason: PERSISTENT NAUSEA OR VOMITING Last Admin: 03/02/25 09:02 Dose: 4 mg Pantoprazole Sodium (Pantoprazole 40 Mg Tablet) 40 mg PO QDAY LIONEL Stop: 04/01/25 10:29 Last Admin: 03/02/25 11:39 Dose: 40 mg Sennosides (Senna Tablet) 1 tab PO QDAY [facility]; Protocol Stop: 04/02/25 08:59 Discontinued Medications Aspirin (Aspirin 81 Mg Chew) 324 mg PO X1 ONE Stop: 03/02/25 08:32 Last Admin: 03/02/25 08:57 Dose: 324 mg Atorvastatin Calcium (Atorvastatin Calcium 20 Mg Tablet) 80 mg PO X1 ONE Stop: 03/02/25 10:29 Last Admin: 03/02/25 11:47 Dose: 80 mg Clopidogrel Bisulfate (Clopidogrel Bisulfate 75 Mg Tablet) 300 mg PO X1 ONE Stop: 03/02/25 09:56 Last Admin: 03/02/25 11:45 Dose: 300 mg Heparin Sodium (Porcine) (Heparin Sod Inj 5000 Unit/Ml Vial) 4,000 unit IV X1 ONE; Protocol Stop: 03/02/25 10:02 Last Admin: 03/02/25 11:33 Dose: 4,000 unit Hydromorphone HCl (Hydromorphone Inj 2 Mg/Ml Vial) 1 mg IVP X1 ONE Stop: 03/02/25 10:34 Last Admin: 03/02/25 11:20 Dose: 1 mg Sodium Chloride (Ns) 500 mls @ 999 mls/hr IV .Q31M ONE Stop: 03/02/25 09:01 Last Infusion: 03/02/25 10:28 Dose: Infused Metoprolol Tartrate (Metoprolol Tartrate 25 Mg Tablet) 25 mg PO BID [facility] Stop: 04/01/25 10:44 Last Admin: 03/02/25 11:37 Dose: 25 mg Morphine Sulfate (Morphine Sulf Inj 10 Mg/Ml Vial) 4 mg IVP X1 ONE Stop: 03/02/25 08:36 Last Admin: 03/02/25 08:59 Dose: 4 mg Assessment & Plan Plan Ramón Orourke is a 54-year-old male with medical history of multivessel CAD (status-post stenting of LCx and RCA in [address] Alvarez), hypertension, hyperlipidemia, and type 2 diabetes who presents on 03/02/2025 with chest pain. Admitted and cardiology consulted for ACS workup. #ACS workup, NSTEMI versus demand ischemia #History of multivessel CAD status post stents in LCx and RCA in 2022 Patient presents with typical cardiac chest pain that is described as pressure and pain, left-sided that radiates to left arm, worsened with exertion, improved with rest/nitroglycerin. Has history of multivessel CAD status post stenting in LCx and RCA in [address] Alvarez as well as strong cardiac family history. EKG showed T wave inversions in leads I and aVL but were present in 2022, ? incomplete LBBB in lead V6, but otherwise no ST changes. Initial troponin of 0.05 and up trended to 1.9. However, patient also presented with hypertensive crisis with initial BP of 219/135. Given history of multivessel CAD as well as strong cardiac family history, will workup for ACS as patient given aspirin 324 mg, clopidogrel 300 mg, and started on heparin drip. ? Continue heparin drip ? Aspirin 81 mg daily, clopidogrel 75 mg p.o. daily ? Atorvastatin 80 mg daily ? Carvedilol 6.25 mg twice daily ? Morphine and nitroglycerin as needed for pain ? N.p.o. after midnight ? Trend troponins until negative delta #Hypertensive emergency Initial BP of 219/135 and elevated troponins that likely due to ACS but may be contributed to by hypertensive crisis. Has home Rx of metoprolol tartrate 50 mg twice daily. ? Recommend to reduce MAP gradually by 10-20% in first hour and 5-15% over next 23 hours ? Or target blood pressure of <180/<120 mmHg for first hour and <160/<110 mmHg for next 23 hours ? Carvedilol 6.25 mg p.o. twice daily ? Nicardipine 20 mg IV PRN #Hyperlipidemia ? Follow-up lipid panel ? Start atorvastatin 80 mg daily # Type 2 diabetes mellitus ? Follow-up A1c ? Blood sugar goal of 140-180 ? SSI, Accu-Cheks every 6 hours ----- Plan discussed with attending physician Dr. Sari Beal MD PGY-1 Internal Medicine Attending Provider Attestation/Addendum I have personally seen and examined the patient separately on the above date of service and discussed the plan of care with the resident. I reviewed the resident Dr. Jasvir Beal consultation progress note and agree with the resident findings and plan in the note above and have also edited the documentation to reflect my findings and plan. A 54-year-old male with a past medical history of multivessel CAD status post PCI with 2 TONYA stents in the proximal and mid RCA, 2 TONYA stents in the proximal and mid OM1 on 07/19/2023, PCI of the ramus or diagonal and PCI of the LAD on 08/08/2023 with residual severe disease of the distal RCA, 100% occluded RPL as well as 90% stenosis of small PDA, significant family history of heart disease including NC CHF and valve replacement, smoker with at least [id number] smoking history, diabetes mellitus type 2 essential hypertension, hyperlipidemia, morbid obesity, noncompliant medications and doctor visits presented to the emergency department for further evaluation of chest pain. Patient started feeling left-sided pressure when he was at work lifting a box but did not radiate and was 9/10 in intensity relieved with rest. Patient tried to work again but then again the symptoms recovered return with activity and then subsided with rest. Denies any kind of palpitations or orthopnea or PND or leg swelling or dizziness or syncope or fall. Denies any cough fever or chills. In ED, initial vitals showed BP 219/135, saturating 94% on room air, afebrile, pulse 68. CBC unremarkable, coag panel unremarkable, CHEM panel showed troponin 0.05 -> 1.9, BNP 175, glucose 217. EKG showed NSR with T wave inversions in leads I and aVL (present in EKG from 2022), Given loading dose aspirin 324 mg x 1, clopidogrel 300 mg x 1, heparin drip started, morphine 4 mg x 1, morphine 1 mg x 1, Dilaudid 1 mg x 1, nitroglycerin x 1, metoprolol tartrate 25 mg, hydralazine 10 mg IV. Cardiology consulted for elevated troponins. Assessment and plan: 1. NSTEMI type I > type II-elevated troponins 2. CAD s/p PCI with 2 TONYA stents in the proximal and mid RCA, 2 TONYA stents in the proximal and mid OM1 on 07/19/2023, PCI of the ramus or diagonal and PCI of the LAD on 08/08/2023 with residual severe disease of the distal RCA, 100% occluded RPL as well as 90% stenosis of small PDA, 3. Hypertensive urgency 4. Type 2 diabetes mellitus 5. Hyperlipidemia 6. Significant family history of heart disease including NC CHF and valve replacement, smoker with at least [id number] smoking history,morbid obesity, noncompliant medications and doctor visits Patient presented with typical chest pain which was worse with exertion and improved with rest and EKG showed some T wave inversions in leads I and aVL which were present before but the troponins are significantly increasing up to 1.9. Patient denies any Chest pain or chest pressure at the present point of time and is hemodynamically stable. Patient upon further questioning informed that he does take his aspirin on and off and he is not completely strict with it. He is not sure if he is on Brilinta or Plavix. Discussed with Dr. Alvarez and he did not follow-up with him for more than 1 year. Unclear if patient is even taking his medications. Started the patient on heparin drip per ACS protocol Aspirin 325 mg x 1 given and restart aspirin 81 mg once daily Would prefer Brilinta or clopidogrel for the patient given his multiple stents as noted above High intensity statin Lipitor 80 mg once daily Telemetry monitoring Check TSH A1c lipid profile for further cardiac restratification Echocardiogram to evaluate LV function RV function, diastolic function and also to rule out any kind of regional wall motion abnormalities. Patient's blood pressure was high on admission and his hypertensive urgency and patient probably not taking all his medications regularly we will start with Coreg 6.25 mg twice daily and will continue to uptitrate. Patient's renal function appears to be normal and will also start ARB with losartan 50 mg once daily. Management of rest of the medical conditions as per primary team and other consultants. Thank you for the consult and allowing me to participate in the care of the patient. Cardiology will continue to follow. Alfie Guo M.D. Interventional Cardiology
[2025-03-02] MEDS: POTASSIUM CHLORIDE 20 mEq TABCR 40 MEQ PO (15:15)
[2025-03-02] MEDS: MORPHINE SULF INJ 10 MG/ML VIAL IVP (15:24)
[2025-03-02 17:57] LABS: Troponin I 10.983 ng/mL (0.0-0.045)
[2025-03-02] MEDS: carVEDILOL 3.125 MG TABLET 6.25 MG PO (19:42)
[2025-03-02 20:09] LABS: Partial Thromboplastin Time 32.7 Seconds (22.0-36.0)
[2025-03-02] MEDS: HEPARIN SOD INJ 5000 UNIT/ML VIAL 4000 UNIT IVP (20:35)
--- NOTE | 2025-03-02 20:35 | PC.NURSE ---
upon coming onto shift noticed ptt heparin q6h redraw was not ordered. ordered new ptt to be drawn got labs back and titrated heparin drip appropriately at this time
[2025-03-02 23:33] LABS: Troponin I 10.929 ng/mL (0.0-0.045)
[2025-03-03] VITALS (9 sets, daily range): BP systolic 144–173; BP diastolic 95–109; PULSE 64–85; RESP 14–96; TEMP 36.2–36.6; O2SAT 96–99; BMI 34.8
[2025-03-03] MEDS: INSULIN LISPRO (AdmeLOG) 1 UNIT/0.01 ML UNIT SC ×4 (00:18→20:29)
[2025-03-03 03:22] LABS: Partial Thromboplastin Time 65.8 Seconds (22.0-36.0)
[2025-03-03] MEDS: Heparin/D5w 25K 250 ML Ivpb 25,000 UNIT/250 ML BAG 17.708 UNIT IV (04:27)
[2025-03-03] MEDS: MORPHINE SULF INJ 10 MG/ML VIAL IVP (05:44)
[2025-03-03 06:26] LABS: Basophils % (Auto) 0 % (0-2.5); Eosinophils # (Auto) 0.4 Thou/mm3 (0.0-0.5); Eosinophils % (Auto) 4 % (0-10); Hematocrit 47.7 % (41.0-53.0); Hemoglobin 16.6 g/dL (13.5-16.0); Immature Granulocytes % (Auto) 0 % (0-0); Immature Granulocytes Auto 0.04 Thou/mm3 (0.00-0.00); Lymphocytes # (Auto) 2.4 Thou/mm3 (1.0-4.8); Lymphocytes % (Auto) 21 % (10-50); Mean Corpuscular HGB Conc 34.8 g/dl (31.0-37.0); Mean Corpuscular Hemoglobin 31.9 pg (25.0-35.0); Mean Corpuscular Volume 92 fL (80-100); Monocytes # (Auto) 0.6 Thou/mm3 (0.0-0.8); Monocytes % (Auto) 5 % (0-12); Neutrophils # (Auto) 7.9 Thou/mm3 (1.8-7.7); Neutrophils % (Auto) 70 % (37-80); Nucleated Red Blood Cell % 0 /100 WBC (0); Platelet Count 220 Thou/mm3 (140-440); RDW Standard Deviation 44.6 fL (35.1-43.9); White Blood Count 11.3 Thou/mm3 (3.8-10.6)
[2025-03-03 06:56] LABS: Alanine Aminotransferase 37 U/L (10-49); Albumin, Serum 4.1 gm/dL (3.5-5.0); Albumin/Globulin Ratio 1.6 (1.2-2.2); Alkaline Phosphatase 112 U/L (46-116); Anion Gap 7 (7-16); Aspartate Amino Transferase 59 U/L (0-34); BUN/Creatinine Ratio 12 Ratio (12-20); Blood Urea Nitrogen 15 mg/dL (9-23); Calcium 9.2 mg/dL (8.3-10.6); Calcium (Corrected) 9.2 mg/dL (8.5-10.1); Carbon Dioxide 26.7 mMol/L (20.0-31.0); Cardiac Risk Estimate 4.2 RATIO (4.0-6.7); Chloride 105 mMol/L (98-107); Cholesterol 195 mg/dL (132-200); Creatinine (Component) 1.3 mg/dL (0.6-1.3); Estimated Creatinine Clearance 79.2 mL/min (>60); Globulin 2.6 gm/dL (2.3-3.5); Glucose 201 mg/dL (74-106); HDL Cholesterol 46 mg/dL (40-60); LDL Cholesterol,Calculated 108 mg/dL (0-130); Magnesium 1.9 mg/dL (1.6-2.6); Osmolality,Calculated 284 (275-295); Phosphorous 2.5 mg/dL (2.4-5.1); Potassium 3.7 mMol/L (3.4-5.1); Sodium 139 mMol/L (136-145); Thyroid Stimulating Hormone 3.08 uIU/mL (0.55-4.78); Total Protein 6.7 gm/dL (5.7-8.2); Triglycerides 206 mg/dL (30-150); eGFR > 60 See Note
[2025-03-03 06:58] LABS: Troponin I 9.864 ng/mL (0.0-0.045)
[2025-03-03 07:26] LABS: Glucose Estimated Average 151 mg/dL (80-131); Hemoglobin A1C 6.9 % Hgb (4.8-6.0)
[2025-03-03] MEDS: LOSARTAN POTASSIUM 25 MG TABLET 50 MG PO (09:43)
[2025-03-03] MEDS: carVEDILOL 3.125 MG TABLET 6.25 MG PO ×2 (09:43→17:19)
[2025-03-03] MEDS: ASPIRIN EC 81 MG TABEC PO (09:47)
--- NOTE | 2025-03-03 09:57 | PC.SS ---
SS follow up note; Patient will need Cardiac Cath, however not scheduled for today. At time of discharge patient will return back home.
[2025-03-03] MEDS: CLOPIDOGREL BISULFATE 75 MG TABLET PO (10:52)
[2025-03-03] MEDS: PANTOPRAZOLE 40 MG TABLET PO (10:52)
[2025-03-03] MEDS: Heparin/D5w 25K 250 ML Ivpb 25,000 UNIT/250 ML BAG 10 UNIT IV (11:07)
--- NOTE | 2025-03-03 11:30 | ESPR_ITS ---
Documentation for date of: 03/03/25 Subjective Subjective Interval history: Patient remained hypertensive over night. Patient was started on Losartan as systolic pressure remained elevated despite Carvediolol 6.25 mg BID started yesterday evening. Patient denied sharp pain over night, only pressure like pain over left pectoral. No reproducible to deep palpation. Cath planned for 03/04/2025 with doctor Antonio at 1 PM. Please hold heparin drip at 7 AM on 03/04/2025 and NPO after midnight. Exam Vital Signs Temp Pulse Resp BP Pulse Ox O2 Del Method 97.3 F 74 14 162/109 H 98 Room Air 03/03/25 08:00 03/03/25 09:43 03/03/25 08:00 03/03/25 09:43 03/03/25 08:00 03/03/25 08:00 Narrative Exam General Appearance: Alert & Oriented X3, well-nourished male who is lying in bed in mild discomfort HEENT: Skull symmetrical and atraumatic. Conjunctivae pin and moist. Pupils equal, round, reactive to light and accommodation (PERRL). External ear without lesion or discharge. Straight, nares patient, mucosa pink, no discharge. No thyroid nodule appreciated. No cervical lymphadenopathy. Cardio: Normal Rate and Rhythm with S1 and S2 heart sounds. No murmurs or extra heart sounds auscultated. No bruits on carotid auscultation. No peripheral edema or cyanosis. Lungs: Symmetric with good expansion. Chest and back non-tender. Breath sounds vesicular without crackles, wheezing or rhonchi Abdomen: Non-tender, Non-distended, Normal Reactive Bowel Sounds Neuro: Alert, cooperative, oriented to person, place, and time. Speech clear. CN grossly intact. Upper motor strength 5/5 and Lower motor strength 5/5. Sensation intact. Objective Labs 03/04/25 06:15 03/04/25 06:15 Labs: Laboratory Results - last 24 hr 03/02/25 03/02/25 03/02/25 16:14 19:31 22:22 WBC RBC Hgb Hct MCV MCH MCHC RDW Std Deviation Plt Count Neut % (Auto) Lymph % (Auto) [place] % (Auto) Eos % (Auto) Baso % (Auto) Neut # (Auto) Lymph # (Auto) [place] # (Auto) Eos # (Auto) Baso # (Auto) Immature Gran # (Auto) Absolute Nucleated RBC Immature Gran % Nucleated RBC % APTT 32.7 Sodium Potassium Chloride Carbon Dioxide Anion Gap BUN Creatinine Estim Creat Clear Calc eGFR BUN/Creatinine Ratio Glucose Estimated Ave Glu mg/dL Hemoglobin A1c Calculated Osmolality Calcium Corrected Calcium Phosphorus Magnesium Total Bilirubin AST ALT Alkaline Phosphatase Troponin I 10.983 H* D 10.929 H* Total Protein Albumin Globulin Albumin/Globulin Ratio Triglycerides Cholesterol LDL Cholesterol, Calc HDL Cholesterol Cholesterol/HDL Ratio TSH 03/03/25 03/03/25 02:40 05:23 WBC 11.3 H D RBC 5.20 Hgb 16.6 H Hct 47.7 MCV 92 MCH 31.9 MCHC 34.8 RDW Std Deviation 44.6 H Plt Count 220 Neut % (Auto) 70 Lymph % (Auto) 21 [place] % (Auto) 5 Eos % (Auto) 4 Baso % (Auto) 0 Neut # (Auto) 7.9 H Lymph # (Auto) 2.4 [place] # (Auto) 0.6 Eos # (Auto) 0.4 Baso # (Auto) 0.0 Immature Gran # (Auto) 0.04 H Absolute Nucleated RBC 0.00 Immature Gran % 0 Nucleated RBC % 0 APTT 65.8 H D Sodium 139 Potassium 3.7 Chloride 105 Carbon Dioxide 26.7 Anion Gap 7 BUN 15 Creatinine 1.3 Estim Creat Clear Calc 79.2 eGFR > 60 BUN/Creatinine Ratio 12 [address] Glu mg/dL 151 H Hemoglobin A1c 6.9 H Calculated Osmolality 284 Calcium 9.2 Corrected Calcium 9.2 Phosphorus 2.5 Magnesium 1.9 Total Bilirubin 2.0 H AST 59 H ALT 37 Alkaline Phosphatase 112 Troponin I 9.864 H* D Total Protein 6.7 Albumin 4.1 Globulin 2.6 Albumin/Globulin Ratio 1.6 Triglycerides 206 H Cholesterol 195 LDL Cholesterol, Calc 108 HDL Cholesterol 46 Cholesterol/HDL Ratio 4.2 TSH 3.08 Quality Measures Quality Measures none Assessment & Plan Assessment Current Active Medications: Generic Name Dose Route Start Last Admin Trade Name Freq PRN Reason Stop Dose Admin Acetaminophen 650 mg 03/02/25 10:21 Acetaminophen 325 Mg Tablet PO 04/01/25 10:20 Q6H PRN Mild Pain 1-3 or Fever >100.3 Aspirin 81 mg 03/03/25 09:00 03/03/25 09:47 Aspirin Ec 81 Mg Tabec PO 04/02/25 08:59 81 mg QDAY LIONEL Administration Carvedilol 6.25 mg 03/02/25 17:30 03/03/25 09:43 Carvedilol 3.125 Mg Tablet PO 04/01/25 17:29 6.25 mg BIDWM LIONEL Administration Clopidogrel Bisulfate 75 mg 03/03/25 09:00 03/03/25 10:52 Clopidogrel Bisulfate 75 Mg Tablet PO 04/02/25 08:59 75 mg QDAY LIONEL Administration Dextrose 50 ml 03/02/25 10:27 Dextrose 50%-Water Inj 50 Ml Syringe IV 04/01/25 10:26 Q15MIN PRN BG <50 OR BG <70 & pt unresponsive Dextrose 25 ml 03/02/25 10:27 Dextrose 50%-Water Inj 50 Ml Syringe IV 04/01/25 10:26 Q15MIN PRN BG 50-70 responsive npo pt Glucagon 1 mg 03/02/25 10:27 Glucagon Inj 1 Mg Vial IM Q15MIN PRN BG <70, and no IV access Hydralazine HCl 10 mg 03/02/25 10:26 03/02/25 20:34 Hydralazine Inj 20 Mg/Ml Vial IVP 04/01/25 10:25 10 mg Q4HR PRN Administration Hypertension Heparin Sodium/Dextrose 25,000 unit in 250 mls @ 9.955 mls/hr 03/03/25 11:15 03/03/25 11:07 Heparin In D5w Ivpb IV 03/17/25 11:14 9.34 units/kg/hr .Q24H LIONEL 10 mls/hr Administration Protocol 9.3 UNITS/KG/HR Insulin Glargine 5 unit 03/03/25 10:30 Insulin Glargine (Lantus) 5 Unit/0.05 Ml (Per 5 Units) SC 04/02/25 10:29 QDAY LIONEL Insulin Human Lispro 0 unit 03/03/25 11:30 Insulin Lispro (Admelog) 1 Unit/0.01 Ml Unit SC 04/02/25 11:29 ACHS LIONEL Protocol Losartan Potassium 50 mg 03/03/25 09:00 03/03/25 09:43 Losartan Potassium 25 Mg Tablet PO 04/02/25 08:59 50 mg QDAY LIONEL Administration Morphine Sulfate 1 mg 03/03/25 09:40 Morphine Sulf Inj 10 Mg/Ml Vial IVP 03/07/25 10:20 Q6HR PRN PAIN SCALE 7-10 (Severe Nitroglycerin 0.4 mg 03/02/25 08:31 03/02/25 09:03 Nitroglycerin 0.4 Mg Subl Btl #25 SL 0.4 mg Q5M PRN Administration CHEST PAIN Ondansetron HCl 4 mg 03/02/25 08:31 03/02/25 09:02 Ondansetron Inj 2 Mg/Ml Inj 2 Ml IV 4 mg Q1HR PRN Administration PERSISTENT NAUSEA OR VOMITING Pantoprazole Sodium 40 mg 03/02/25 10:30 03/03/25 10:52 Pantoprazole 40 Mg Tablet PO 04/01/25 10:29 40 mg QDAY LIONEL Administration Sennosides 1 tab 03/03/25 09:00 03/03/25 10:56 Senna Tablet PO 04/02/25 08:59 Not Given QDAY [facility] Protocol Plan Patient is a 54-year-old male with a past medical history of hypertension, hyperlipidemia, diabetes mellitus type 2 [id number] (Janumet), CAD w/ multi-vessel disease s/p of the right coronary artery and left circumflex artery who was admitted on 03/02/2025 with typical chest pain w/ NSTEMI type I vs type II. #NSTEMI type I versus type II #CAD multi-vessel disease s/p stents 2022 #Chest pain #Incomplete LBBB #Hyperlipidemia NSTEMI type I likely given typical chest pain, upending troponin levels, and previous history of [id number]-[id number] disease s/p stents of right coronary artery proximal/distal and circumflex who was recommended to follow up with CABG. NSTEMI type I vs NSTEMI II, demand ischemia form hypertensive urgency vs Unstable Angina can not be ruled. out PE Diagnostics: Troponin 10.929, 9.864 EKG Q waves noted and incomplete left heart block, no ST elevation Noted Echo (07/15/2023): EF 55-60% SOFIYA for UA/NSTEMI score: 5 points, 26% risk of 14 days of all cause mortality. Plan -NPO after midnight, scheduled Cath at 1 PM -Morphine and Nitro for pain management -Atorvastatin 80 mg HS & Aspirin 81 mg qday, Plavix 75 mg qday, and Carvedilol 6.25 BID -Losartan 50 mg qday -Consult Cardiology, appreciate recommendations, Dr. Alvarez #Hypertension #Hypertensive urgency, resolved. Patient presented with hypertensive urgency on admission and denied taking any anti-hypertensive medication at home. Plan -Losartan 50 mg Qday -Monitor BP #Diabetes mellitus type 2, enw-gqbmlhh-lordwussn Past medical history of diabetes mellitus, non-insulin dependent with a previous A1c of 9.6 (07/2023). Patient's home medication of Janumet (metformin and sitagliptin). A1c of 6.9 Plan -Hold Janumet -Glargine 5 units -Sliding Scale -Monitor Fasting Blood glucose #Polycythemia Polycythemia likely secondary to body habitus vs hemoconcentrated vs less likely secondary to primary mutation such as SILVA . Continue to monitor Plan -Monitor -No acute intervention -sleep study outpatient - The patient's plan was discussed with attending Dr. Toshia Ruff MD PGY1 Internal Medicine Attending Provider Attestation/Addendum I reviewed labs, imaging, EKG, home medications and prior available records. Face to face evaluation was performed by me. I have personally examined the patient and discussed assessment and plan with the IM team. I reviewed the resident note and agree with the plan with exceptions as below. Hypertensive emergency Non-STEMI Uncontrolled diabetes mellitus with hyperglycemia Essential hypertension Continue aspirin and Plavix. Continue atorvastatin Continue heparin drip Discussed with cardiology: Plan for cardiac catheterization 03/04 BP improved. Started Coreg. Added losartan Added 5 units of long-acting insulin. Monitor fingersticks Troponin peaked at 11 Avoid tobacco use
[2025-03-03 12:17] LABS: Troponin I 6.791 ng/mL (0.0-0.045)
[2025-03-03] MEDS: INSULIN GLARGINE (Lantus) 5 UNIT/0.05 ML (PER 5 UNITS) SC (14:06)
--- NOTE | 2025-03-03 14:33 | ESPR_ITS ---
Documentation for date of: 03/03/25 Subjective Subjective Interval history: No acute events overnight.?Patient seen and examined at bedside this afternoon. He reported doing well. He denied any new chest pain episodes overnight, any pressure-like discomfort, palpitations, or dizziness. Patient was up and about the room ambulating, family at bedside. Labs and vitals were reviewed.?BP has been elevated ranging from 144/99 to 185/114 in the last 24 hours. Telemetry shows HR ranging from 60-80s, no arrhythmia events noted. Labs showed troponin peaked at 10.983 yesterday afternoon. Other labs showed WBC uptrended to 11.3. A1c 6.9. TC 195, TG 206, LDL 108, and HDL 46. TSH 3.08. No further complaints at this time. Plan is for cath tomorrow, continue heparin drip. Review of systems otherwise negative except what is mentioned above. Exam Vital Signs Temp Pulse Resp BP Pulse Ox O2 Del Method 97.2 F 72 16 157/98 H 96 Room Air 03/03/25 12:00 03/03/25 12:00 03/03/25 12:00 03/03/25 12:00 03/03/25 12:03/03/25 12:00 Narrative Exam General: AOx3, mild distress, able to speak full sentences on room air HEENT: NC/AT, mucous membranes moist, bilateral sclera anicteric Cardiovascular: regular rate and rhythm, S1/S2 present, no murmurs appreciated Pulmonary: clear to auscultation bilaterally, no rales/rhonchi/wheezes Abdominal: soft, non-tender, non-distended, no rebound/guarding, normal bowel sounds present Musculoskeletal: normal ROM, no peripheral edema Skin: warm and dry, intact, no rashes Neuro: CN II-XII intact, no focal deficits Objective Labs 03/04/25 06:15 03/04/25 06:15 Labs: Laboratory Results - last 24 hr 03/02/25 03/02/25 03/02/25 16:14 19:31 22:22 WBC RBC Hgb Hct MCV MCH MCHC RDW Std Deviation Plt Count Neut % (Auto) Lymph % (Auto) [place] % (Auto) Eos % (Auto) Baso % (Auto) Neut # (Auto) Lymph # (Auto) [place] # (Auto) Eos # (Auto) Baso # (Auto) Immature Gran # (Auto) Absolute Nucleated RBC Immature Gran % Nucleated RBC % PT INR APTT 32.7 Sodium Potassium Chloride Carbon Dioxide Anion Gap BUN Creatinine Estim Creat Clear Calc eGFR BUN/Creatinine Ratio Glucose Estimated Ave Glu mg/dL Hemoglobin A1c Calculated Osmolality Calcium Corrected Calcium Phosphorus Magnesium Total Bilirubin AST ALT Alkaline Phosphatase Troponin I 10.983 H* D 10.929 H* Total Protein Albumin Globulin Albumin/Globulin Ratio Triglycerides Cholesterol LDL Cholesterol, Calc HDL Cholesterol Cholesterol/HDL Ratio TSH 03/03/25 03/03/25 03/03/25 02:40 05:23 10:30 WBC 11.3 H D RBC 5.20 Hgb 16.6 H Hct 47.7 MCV 92 MCH 31.9 MCHC 34.8 RDW Std Deviation 44.6 H Plt Count 220 Neut % (Auto) 70 Lymph % (Auto) 21 [place] % (Auto) 5 Eos % (Auto) 4 Baso % (Auto) 0 Neut # (Auto) 7.9 H Lymph # (Auto) 2.4 [place] # (Auto) 0.6 Eos # (Auto) 0.4 Baso # (Auto) 0.0 Immature Gran # (Auto) 0.04 H Absolute Nucleated RBC 0.00 Immature Gran % 0 Nucleated RBC % 0 PT 11.0 INR 1.0 APTT 65.8 H D 28.0 D Sodium 139 Potassium 3.7 Chloride 105 Carbon Dioxide 26.7 Anion Gap 7 BUN 15 Creatinine 1.3 Estim Creat Clear Calc 79.2 eGFR > 60 BUN/Creatinine Ratio 12 [address]ucose [address] Glu mg/dL 151 H Hemoglobin A1c 6.9 H Calculated Osmolality 284 Calcium 9.2 Corrected Calcium 9.2 Phosphorus 2.5 Magnesium 1.9 Total Bilirubin 2.0 H AST 59 H ALT 37 Alkaline Phosphatase 112 Troponin I 9.864 H* D 6.791 H* D Total Protein 6.7 Albumin 4.1 Globulin 2.6 Albumin/Globulin Ratio 1.6 Triglycerides 206 H Cholesterol 195 LDL Cholesterol, Calc 108 HDL Cholesterol 46 Cholesterol/HDL Ratio 4.2 TSH 3.08 Quality Measures Quality Measures none Assessment & Plan Assessment Current Active Medications: Generic Name Dose Route Start Last Admin Trade Name Freq PRN Reason Stop Dose Admin Acetaminophen 650 mg 03/02/25 10:21 Acetaminophen 325 Mg Tablet PO 04/01/25 10:20 Q6H PRN Mild Pain 1-3 or Fever >100.3 Aspirin 81 mg 03/03/25 09:00 03/03/25 09:47 Aspirin Ec 81 Mg Tabec PO 04/02/25 08:59 81 mg QDAY LIONEL Administration Carvedilol 6.25 mg 03/02/25 17:30 03/03/25 09:43 Carvedilol 3.125 Mg Tablet PO 04/01/25 17:29 6.25 mg BIDWM LIONEL Administration Clopidogrel Bisulfate 75 mg 03/03/25 09:00 03/03/25 10:52 Clopidogrel Bisulfate 75 Mg Tablet PO 04/02/25 08:59 75 mg QDAY LIONEL Administration Dextrose 50 ml 03/02/25 10:27 Dextrose 50%-Water Inj 50 Ml Syringe IV 04/01/25 10:26 Q15MIN PRN BG <50 OR BG <70 & pt unresponsive Dextrose 25 ml 03/02/25 10:27 Dextrose 50%-Water Inj 50 Ml Syringe IV 04/01/25 10:26 Q15MIN PRN BG 50-70 responsive npo pt Glucagon 1 mg 03/02/25 10:27 Glucagon Inj 1 Mg Vial IM Q15MIN PRN BG <70, and no IV access Hydralazine HCl 10 mg 03/02/25 10:26 03/02/25 20:34 Hydralazine Inj 20 Mg/Ml Vial IVP 04/01/25 10:25 10 mg Q4HR PRN Administration Hypertension Heparin Sodium/Dextrose 25,000 unit in 250 mls @ 9.955 mls/hr 03/03/25 11:15 03/03/25 11:07 Heparin In D5w Ivpb IV 03/17/25 11:14 9.34 units/kg/hr .Q24H LIONEL 10 mls/hr Administration Protocol 9.3 UNITS/KG/HR Insulin Glargine 5 unit 03/03/25 10:30 03/03/25 14:06 Insulin Glargine (Lantus) 5 Unit/0.05 Ml (Per 5 Units) SC 04/02/25 10:29 5 unit QDAY LIONEL Administration Insulin Human Lispro 0 unit 03/03/25 11:30 03/03/25 11:31 Insulin Lispro (Admelog) 1 Unit/0.01 Ml Unit SC 04/02/25 11:29 Not Given ACHS [facility] Protocol Losartan Potassium 50 mg 03/03/25 09:00 03/03/25 09:43 Losartan Potassium 25 Mg Tablet PO 04/02/25 08:59 50 mg QDAY LIONEL Administration Morphine Sulfate 1 mg 03/03/25 09:40 Morphine Sulf Inj 10 Mg/Ml Vial IVP 03/07/25 10:20 Q6HR PRN PAIN SCALE 7-10 (Severe Nitroglycerin 0.4 mg 03/02/25 08:31 03/02/25 09:03 Nitroglycerin 0.4 Mg Subl Btl #25 SL 0.4 mg Q5M PRN Administration CHEST PAIN Ondansetron HCl 4 mg 03/02/25 08:31 03/02/25 09:02 Ondansetron Inj 2 Mg/Ml Inj 2 Ml IV 4 mg Q1HR PRN Administration PERSISTENT NAUSEA OR VOMITING Pantoprazole Sodium 40 mg 03/02/25 10:30 03/03/25 10:52 Pantoprazole 40 Mg Tablet PO 04/01/25 10:29 40 mg QDAY LIONEL Administration Sennosides 1 tab 03/03/25 09:00 03/03/25 10:56 Senna Tablet PO 04/02/25 08:59 Not Given QDAY [facility] Protocol Plan Ramón Orourke is a 54-year-old male with medical history of multivessel CAD (status-post stenting of LCx and RCA in [address] Alvarez), hypertension, hyperlipidemia, and type 2 diabetes who presented on 03/02/2025 with chest pain. Admitted and cardiology consulted for ACS workup. #ACS workup, NSTEMI versus demand ischemia #History of multivessel CAD status post stents in LCx and RCA in 2022 Patient presents with typical cardiac chest pain that is described as pressure and pain, left-sided that radiates to left arm, worsened with exertion, improved with rest/nitroglycerin. Has history of multivessel CAD status post stenting in LCx and RCA [place] [address] Alvarez as well as strong cardiac family history. EKG showed T wave inversions in leads I and aVL but were present in 2022, ? incomplete LBBB in lead V6, but otherwise no ST changes. Initial troponin of 0.05 and up trended to 1.9. However, patient also presented with hypertensive crisis with initial BP of 219/135. Given history of multivessel CAD as well as strong cardiac family history, will workup for ACS as patient given aspirin 324 mg, clopidogrel 300 mg, and started on heparin drip. ? Cardiac cath planned for tomorrow 03/04 ? Continue heparin drip ? Aspirin 81 mg daily, clopidogrel 75 mg p.o. daily ? Atorvastatin 80 mg daily ? Carvedilol 6.25 mg twice daily ? Morphine and nitroglycerin as needed for pain ? N.p.o. after midnight ? Troponin peaked no need to continue trend #Hypertensive emergency Initial BP of 219/135 and elevated troponins that likely due to ACS but may be contributed to by hypertensive crisis. Has home Rx of metoprolol tartrate 50 mg twice daily. ? Recommend to reduce MAP gradually by 10-20% in first hour and 5-15% over next 23 hours ? Or target blood pressure of <180/<120 mmHg for first hour and <160/<110 mmHg for next 23 hours ? Carvedilol 6.25 mg p.o. twice daily #Hyperlipidemia TC 195, TG 206, LDL 108, and HDL 46. ? Continue atorvastatin 80 mg daily # Type 2 diabetes mellitus A1c 6.9. ? Blood sugar goal of 140-180 ? SSI, Accu-Cheks every 6 hours ----- Plan discussed with attending physician Dr. Sari Cortes PGY-2 Attending Provider Attestation/Addendum I have personally seen and examined the patient separately on the above date of service and discussed the plan of care with the resident. I reviewed the resident Dr. Pam Cortes consultation progress note and agree with the resident findings and plan in the note above and have also edited the documentation to reflect my findings and plan. Patient denies any current chest pain and chest pressure. Given the NSTEMI with a peak troponin of 11.0 patient has been scheduled for left heart cardiac catheterization this afternoon or tomorrow morning.. Heparin drip to be continued until the left heart cardiac attrition. Continue aspirin 81 mg daily, Biaxin 5 mg once daily, high intensity statin no beta-nenita as the heart rate is mildly low at 50 to 60 bpm. As noted in the initial HPI patient has been noncompliant with his medication including basic aspirin 81 mg once daily and has stopped taking his Brilinta at the dual antiplatelet long-term ago. He does have a history of CAD with multiple stents to RCA, LCx, diagonal as well as the LAD with a total of at least 6 stents. Patient is at high risk for CAD with in-stent restenosis. Alfie Guo M.D. Interventional Cardiology
[2025-03-03 17:12] LABS: Partial Thromboplastin Time 31.4 Seconds (22.0-36.0)
[2025-03-03 18:08] LABS: Troponin I 4.598 ng/mL (0.0-0.045)
[2025-03-03] MEDS: HEPARIN SOD INJ 5000 UNIT/ML VIAL 4000 UNIT IVP (18:45)
[2025-03-04] VITALS (24 sets, daily range): BP systolic 137–183; BP diastolic 80–116; PULSE 55–83; RESP 10–96; TEMP 36.1–36.6; O2SAT 92–98; BMI 34.8
[2025-03-04 01:47] LABS: Partial Thromboplastin Time 54.2 Seconds (22.0-36.0)
[2025-03-04 06:44] LABS: Basophils % (Auto) 0 % (0-2.5); Eosinophils # (Auto) 0.4 Thou/mm3 (0.0-0.5); Eosinophils % (Auto) 6 % (0-10); Hematocrit 45.7 % (41.0-53.0); Hemoglobin 16.1 g/dL (13.5-16.0); Immature Granulocytes % (Auto) 0 % (0-0); Immature Granulocytes Auto 0.02 Thou/mm3 (0.00-0.00); Lymphocytes # (Auto) 2.8 Thou/mm3 (1.0-4.8); Lymphocytes % (Auto) 39 % (10-50); Mean Corpuscular HGB Conc 35.2 g/dl (31.0-37.0); Mean Corpuscular Volume 91 fL (80-100); Monocytes # (Auto) 0.4 Thou/mm3 (0.0-0.8); Monocytes % (Auto) 6 % (0-12); Neutrophils # (Auto) 3.5 Thou/mm3 (1.8-7.7); Neutrophils % (Auto) 49 % (37-80); Nucleated Red Blood Cell % 0 /100 WBC (0); Platelet Count 187 Thou/mm3 (140-440); Red Blood Count 5.03 Miln/mm3 (4.50-5.90); White Blood Count 7.1 Thou/mm3 (3.8-10.6)
[2025-03-04 07:04] LABS: Alanine Aminotransferase 27 U/L (10-49); Albumin, Serum 3.9 gm/dL (3.5-5.0); Albumin/Globulin Ratio 1.7 (1.2-2.2); Alkaline Phosphatase 106 U/L (46-116); Anion Gap 8 (7-16); Aspartate Amino Transferase 26 U/L (0-34); BUN/Creatinine Ratio 15 Ratio (12-20); Bilirubin,Total 1.6 mg/dL (0.3-1.2); Blood Urea Nitrogen 21 mg/dL (9-23); Calcium 9.1 mg/dL (8.3-10.6); Calcium (Corrected) 9.2 mg/dL (8.5-10.1); Carbon Dioxide 26.5 mMol/L (20.0-31.0); Chloride 107 mMol/L (98-107); Creatinine (Component) 1.4 mg/dL (0.6-1.3); Estimated Creatinine Clearance 73.6 mL/min (>60); Globulin 2.3 gm/dL (2.3-3.5); Glucose 195 mg/dL (74-106); Magnesium 2.1 mg/dL (1.6-2.6); Osmolality,Calculated 289 (275-295); Phosphorous 3.2 mg/dL (2.4-5.1); Potassium 3.9 mMol/L (3.4-5.1); Sodium 141 mMol/L (136-145); Total Protein 6.2 gm/dL (5.7-8.2); eGFR > 60 See Note
[2025-03-04 07:14] LABS: Partial Thromboplastin Time 56.2 Seconds (22.0-36.0)
[2025-03-04] MEDS: LOSARTAN POTASSIUM 25 MG TABLET 50 MG PO (08:31)
[2025-03-04] MEDS: CLOPIDOGREL BISULFATE 75 MG TABLET PO (08:32)
[2025-03-04] MEDS: SENNA TABLET 1 TAB PO (08:32)
[2025-03-04] MEDS: carVEDILOL 3.125 MG TABLET 6.25 MG PO ×2 (08:32→17:02)
[2025-03-04] MEDS: ASPIRIN EC 81 MG TABEC PO (08:32)
[2025-03-04] MEDS: PANTOPRAZOLE 40 MG TABLET PO (08:33)
--- NOTE | 2025-03-04 12:53 | ESPR_ITS ---
Documentation for date of: 03/04/25 Subjective Subjective Interval history: No overnigh events. Pateint remains NPO of Cath planned for 1 PM. Heparin on hold 6 hours prior to procedure. Denied any chest pain overnight or pressure. Patient denied nausea or emesis. Exam Vital Signs Temp Pulse Resp BP Pulse Ox O2 Del Method 97.9 F 62 12 183/116 H 96 Room Air 03/04/25 11:10 03/04/25 11:10 03/04/25 11:10 03/04/25 11:10 03/04/25 11:10 03/04/25 11:10 Narrative Exam General Appearance: Alert & Oriented X3, well-nourished male who is lying in bed in mild discomfort HEENT: Skull symmetrical and atraumatic. Conjunctivae pin and moist. Pupils equal, round, reactive to light and accommodation (PERRL). External ear without lesion or discharge. Straight, nares patient, mucosa pink, no discharge. No thyroid nodule appreciated. No cervical lymphadenopathy. Cardio: Normal Rate and Rhythm with S1 and S2 heart sounds. No murmurs or extra heart sounds auscultated. No bruits on carotid auscultation. No peripheral edema or cyanosis. Lungs: Symmetric with good expansion. Chest and back non-tender. Breath sounds vesicular without crackles, wheezing or rhonchi Abdomen: Non-tender, Non-distended, Normal Reactive Bowel Sounds Neuro: Alert, cooperative, oriented to person, place, and time. Speech clear. CN grossly intact. Upper motor strength 5/5 and Lower motor strength 5/5. Sensation intact. Objective Labs 03/05/25 06:05 03/05/25 06:05 Labs: Laboratory Results - last 24 hr 03/03/25 03/04/25 03/04/25 16:50 00:48 06:15 WBC 7.1 RBC 5.03 Hgb 16.1 H Hct 45.7 MCV 91 MCH 32.0 MCHC 35.2 RDW Std Deviation 45.0 H Plt Count 187 D Neut % (Auto) 49 Lymph % (Auto) 39 [place] % (Auto) 6 Eos % (Auto) 6 Baso % (Auto) 0 Neut # (Auto) 3.5 Lymph # (Auto) 2.8 [place] # (Auto) 0.4 Eos # (Auto) 0.4 Baso # (Auto) 0.0 Immature Gran # (Auto) 0.02 H Absolute Nucleated RBC 0.00 Immature Gran % 0 Nucleated RBC % 0 PT 11.0 INR 1.0 APTT 31.4 54.2 H D 56.2 H Sodium 141 Potassium 3.9 Chloride 107 Carbon Dioxide 26.5 Anion Gap 8 BUN 21 Creatinine 1.4 H Estim Creat Clear Calc 73.6 eGFR > 60 BUN/Creatinine Ratio 15 Glucose 195 H Calculated Osmolality 289 Calcium 9.1 Corrected Calcium 9.2 Phosphorus 3.2 Magnesium 2.1 Total Bilirubin 1.6 H AST 26 ALT 27 Alkaline Phosphatase 106 Troponin I 4.598 H* D Total Protein 6.2 Albumin 3.9 Globulin 2.3 Albumin/Globulin Ratio 1.7 Quality Measures Quality Measures none Assessment & Plan Assessment Current Active Medications: Generic Name Dose Route Start Last Admin Trade Name Freq PRN Reason Stop Dose Admin Acetaminophen 650 mg 03/02/25 10:21 Acetaminophen 325 Mg Tablet PO 04/01/25 10:20 Q6H PRN Mild Pain 1-3 or Fever >100.3 Aspirin 81 mg 03/03/25 09:00 03/04/25 08:32 Aspirin Ec 81 Mg Tabec PO 04/02/25 08:59 81 mg QDAY LIONEL Administration Atorvastatin Calcium 80 mg 03/04/25 21:00 Atorvastatin Calcium 20 Mg Tablet PO 04/03/25 20:59 HS [facility] Carvedilol 6.25 mg 03/02/25 17:30 03/04/25 08:32 Carvedilol 3.125 Mg Tablet PO 04/01/25 17:29 6.25 mg BIDWM LIONEL Administration Clopidogrel Bisulfate 75 mg 03/03/25 09:00 03/04/25 08:32 Clopidogrel Bisulfate 75 Mg Tablet PO 04/02/25 08:59 75 mg QDAY LIONEL Administration Dextrose 50 ml 03/02/25 10:27 Dextrose 50%-Water Inj 50 Ml Syringe IV 04/01/25 10:26 Q15MIN PRN BG <50 OR BG <70 & pt unresponsive Dextrose 25 ml 03/02/25 10:27 Dextrose 50%-Water Inj 50 Ml Syringe IV 04/01/25 10:26 Q15MIN PRN BG 50-70 responsive npo pt Glucagon 1 mg 03/02/25 10:27 Glucagon Inj 1 Mg Vial IM Q15MIN PRN BG <70, and no IV access Heparin Sodium/Dextrose 25,000 unit in 250 mls @ 9.955 mls/hr 03/03/25 11:15 03/04/25 07:00 Heparin In D5w Ivpb IV 03/17/25 11:14 Infused .Q24H LIONEL Titration Protocol 9.3 UNITS/KG/HR Insulin Glargine 5 unit 03/03/25 10:30 03/04/25 08:33 Insulin Glargine (Lantus) 5 Unit/0.05 Ml (Per 5 Units) SC 04/02/25 10:29 Not Given QDAY LIONEL Insulin Human Lispro 0 unit 03/04/25 12:00 Insulin Lispro (Admelog) 1 Unit/0.01 Ml Unit SC 04/03/25 11:59 Q6HR LIONEL Protocol Losartan Potassium 50 mg 03/03/25 09:00 03/04/25 08:31 Losartan Potassium 25 Mg Tablet PO 04/02/25 08:59 50 mg QDAY LIONEL Administration Morphine Sulfate 1 mg 03/03/25 09:40 Morphine Sulf Inj 10 Mg/Ml Vial IVP 03/07/25 10:20 Q6HR PRN PAIN SCALE 7-10 (Severe Nitroglycerin 0.4 mg 03/02/25 08:31 03/02/25 09:03 Nitroglycerin 0.4 Mg Subl Btl #25 SL 0.4 mg Q5M PRN Administration CHEST PAIN Ondansetron HCl 4 mg 03/02/25 08:31 03/02/25 09:02 Ondansetron Inj 2 Mg/Ml Inj 2 Ml IV 4 mg Q1HR PRN Administration PERSISTENT NAUSEA OR VOMITING Pantoprazole Sodium 40 mg 03/02/25 10:30 03/04/25 08:33 Pantoprazole 40 Mg Tablet PO 04/01/25 10:29 40 mg QDAY LIONEL Administration Sennosides 1 tab 03/03/25 09:00 03/04/25 08:32 Senna Tablet PO 04/02/25 08:59 1 tab QDAY [facility] Administration Protocol Plan Patient is a 54-year-old male with a past medical history of hypertension, hyperlipidemia, diabetes mellitus type 2 nif-wlhazyg-iymchtsva (Janumet), CAD w/ multi-vessel disease s/p of the right coronary artery and left circumflex artery who was admitted on 03/02/2025 with typical chest pain w/ NSTEMI type I vs type II. #NSTEMI type I versus type II #CAD multi-vessel disease s/p stents 2022 #Chest pain #Incomplete LBBB #Hyperlipidemia NSTEMI type I likely given typical chest pain, upending troponin levels, and previous history of UNG-osohm-xknmye disease s/p stents of right coronary artery proximal/distal and circumflex who was recommended to follow up with CABG. NSTEMI type I vs NSTEMI II, demand ischemia form hypertensive urgency vs Unstable Angina can not be ruled. out PE Diagnostics: Troponin 10.929, 9.864 EKG Q waves noted and incomplete left heart block, no ST elevation Noted Echo (07/15/2023): EF 55-60% SOFIYA for UA/NSTEMI score: 5 points, 26% risk of 14 days of all cause mortality. Plan -Cath planned for 1 PM -Hold heparin drip 6 hours prior to cath, resume aftewards -Morphine and Nitro for pain management -Atorvastatin 80 mg HS & Aspirin 81 mg qday, Plavix 75 mg qday, and Carvedilol 6.25 BID -Losartan 50 mg qday -Consult Cardiology, appreciate recommendations, Dr. Alvarez #Hypertension #Hypertensive emergency, resolved. Patient presented with hypertensive urgency on admission and denied taking any anti-hypertensive medication at home. Plan -Losartan 50 mg Qday -Monitor BP #Diabetes mellitus type 2, nis-dcxywuh-mmkoxdrkw Past medical history of diabetes mellitus, non-insulin dependent with a previous A1c of 9.6 (07/2023). Patient's home medication of Janumet (metformin and sitagliptin). A1c of 6.9 Plan -Hold Janumet -Glargine 5 units -Sliding Scale -Monitor Fasting Blood glucose #Polycythemia Polycythemia likely secondary to body habitus vs hemoconcentrated vs less likely secondary to primary mutation such as SILVA . Continue to monitor Plan -Monitor -No acute intervention -sleep study outpatient - The patient's plan was discussed with attending Dr. Toshia Ruff MD PGY1 Internal Medicine Attending Provider Attestation/Addendum I reviewed labs, imaging, EKG, home medications and prior available records. Face to face evaluation was performed by me. I have personally examined the patient and discussed assessment and plan with the IM team. I reviewed the resident note and agree with the plan with exceptions as below. Hypertensive emergency Non-STEMI Uncontrolled diabetes mellitus with hyperglycemia Essential hypertension Continue aspirin and Plavix. Continue atorvastatin Held heparin drip Discussed with cardiology: Plan for cardiac catheterization 03/04 BP improved. Started Coreg. Added losartan Added 5 units of long-acting insulin. Monitor fingersticks Troponin peaked at 11 Avoid tobacco use
--- NOTE | 2025-03-04 14:45 | PC.SS ---
rounding note: Cardiac cath scheduled for today
--- NOTE | 2025-03-04 16:05 | PD.RESPRO ---
Documentation for date of: 03/04/25 Subjective Subjective Interval history: Patient seen and examined. Pending hearth catherization and possible PCI in the afternoon. No overnight events. Exam Vital Signs Temp Pulse Resp BP Pulse Ox O2 Del Method 97.9 F 62 12 183/116 H 96 Room Air 03/04/25 11:10 03/04/25 11:10 03/04/25 11:10 03/04/25 11:10 03/04/25 11:10 03/04/25 11:10 Narrative Exam General: AOx3, mild distress, able to speak full sentences on room air HEENT: NC/AT, mucous membranes moist, bilateral sclera anicteric Cardiovascular: regular rate and rhythm, S1/S2 present, no murmurs appreciated Pulmonary: clear to auscultation bilaterally, no rales/rhonchi/wheezes Abdominal: soft, non-tender, non-distended, no rebound/guarding, normal bowel sounds present Musculoskeletal: normal ROM, no peripheral edema Skin: warm and dry, intact, no rashes Neuro: CN II-XII intact, no focal deficits Objective Labs 03/04/25 06:15 03/04/25 06:15 Labs: Laboratory Results - last 24 hr 03/03/25 03/04/25 03/04/25 16:50 00:48 06:15 WBC 7.1 RBC 5.03 Hgb 16.1 H Hct 45.7 MCV 91 MCH 32.0 MCHC 35.2 RDW Std Deviation 45.0 H Plt Count 187 D Neut % (Auto) 49 Lymph % (Auto) 39 [place] % (Auto) 6 Eos % (Auto) 6 Baso % (Auto) 0 Neut # (Auto) 3.5 Lymph # (Auto) 2.8 [place] # (Auto) 0.4 Eos # (Auto) 0.4 Baso # (Auto) 0.0 Immature Gran # (Auto) 0.02 H Absolute Nucleated RBC 0.00 Immature Gran % 0 Nucleated RBC % 0 PT 11.0 INR 1.0 APTT 31.4 54.2 H D 56.2 H Sodium 141 Potassium 3.9 Chloride 107 Carbon Dioxide 26.5 Anion Gap 8 BUN 21 Creatinine 1.4 H Estim Creat Clear Calc 73.6 eGFR > 60 BUN/Creatinine Ratio 15 Glucose 195 H Calculated Osmolality 289 Calcium 9.1 Corrected Calcium 9.2 Phosphorus 3.2 Magnesium 2.1 Total Bilirubin 1.6 H AST 26 ALT 27 Alkaline Phosphatase 106 Troponin I 4.598 H* D Total Protein 6.2 Albumin 3.9 Globulin 2.3 Albumin/Globulin Ratio 1.7 Quality Measures Quality Measures none Assessment & Plan Assessment Current Active Medications: Generic Name Dose Route Start Last Admin Trade Name Freq PRN Reason Stop Dose Admin Acetaminophen 650 mg 03/02/25 10:21 Acetaminophen 325 Mg Tablet PO 04/01/25 10:20 Q6H PRN Mild Pain 1-3 or Fever >100.3 Aspirin 81 mg 03/03/25 09:00 03/04/25 08:32 Aspirin Ec 81 Mg Tabec PO 04/02/25 08:59 81 mg QDAY LIONEL Administration Atorvastatin Calcium 80 mg 03/04/25 21:00 Atorvastatin Calcium 20 Mg Tablet PO 04/03/25 20:59 HS LIONEL Carvedilol 6.25 mg 03/02/25 17:30 03/04/25 08:32 Carvedilol 3.125 Mg Tablet PO 04/01/25 17:29 6.25 mg BIDWM LIONEL Administration Clopidogrel Bisulfate 75 mg 03/03/25 09:00 03/04/25 08:32 Clopidogrel Bisulfate 75 Mg Tablet PO 04/02/25 08:59 75 mg QDAY LIONEL Administration Dextrose 50 ml 03/02/25 10:27 Dextrose 50%-Water Inj 50 Ml Syringe IV 04/01/25 10:26 Q15MIN PRN BG <50 OR BG <70 & pt unresponsive Dextrose 25 ml 03/02/25 10:27 Dextrose 50%-Water Inj 50 Ml Syringe IV 04/01/25 10:26 Q15MIN PRN BG 50-70 responsive npo pt Glucagon 1 mg 03/02/25 10:27 Glucagon Inj 1 Mg Vial IM Q15MIN PRN BG <70, and no IV access Heparin Sodium/Dextrose 25,000 unit in 250 mls @ 9.955 mls/hr 03/03/25 11:15 03/04/25 07:00 Heparin In D5w Ivpb IV 03/17/25 11:14 Infused .Q24H LIONEL Titration Protocol 9.3 UNITS/KG/HR Insulin Glargine 5 unit 03/03/25 10:30 03/04/25 08:33 Insulin Glargine (Lantus) 5 Unit/0.05 Ml (Per 5 Units) SC 04/02/25 10:29 Not Given QDAY LIONEL Insulin Human Lispro 0 unit 03/04/25 12:00 Insulin Lispro (Admelog) 1 Unit/0.01 Ml Unit SC 04/03/25 11:59 Q6HR [facility] Protocol Losartan Potassium 50 mg 03/03/25 09:00 03/04/25 08:31 Losartan Potassium 25 Mg Tablet PO 04/02/25 08:59 50 mg QDAY LIONEL Administration Morphine Sulfate 1 mg 03/03/25 09:40 Morphine Sulf Inj 10 Mg/Ml Vial IVP 03/07/25 10:20 Q6HR PRN PAIN SCALE 7-10 (Severe Nitroglycerin 0.4 mg 03/02/25 08:31 03/02/25 09:03 Nitroglycerin 0.4 Mg Subl Btl #25 SL 0.4 mg Q5M PRN Administration CHEST PAIN Ondansetron HCl 4 mg 03/02/25 08:31 03/02/25 09:02 Ondansetron Inj 2 Mg/Ml Inj 2 Ml IV 4 mg Q1HR PRN Administration PERSISTENT NAUSEA OR VOMITING Pantoprazole Sodium 40 mg 03/02/25 10:30 03/04/25 08:33 Pantoprazole 40 Mg Tablet PO 04/01/25 10:29 40 mg QDAY LIONEL Administration Sennosides 1 tab 03/03/25 09:00 03/04/25 08:32 Senna Tablet PO 04/02/25 08:59 1 tab QDAY LIONEL Administration Protocol Joselin Orourke is a 54-year-old male with medical history of multivessel CAD (status-post stenting of LCx and RCA in [address] Alvarez), hypertension, hyperlipidemia, and type 2 diabetes who presented on 03/02/2025 with chest pain. Admitted and cardiology consulted for ACS workup. #ACS workup, NSTEMI versus demand ischemia #History of multivessel CAD status post stents in LCx and RCA in 2022 Patient presents with typical cardiac chest pain that is described as pressure and pain, left-sided that radiates to left arm, worsened with exertion, improved with rest/nitroglycerin. Has history of multivessel CAD status post stenting in LCx and RCA [place] [address] Alvarez as well as strong cardiac family history. EKG showed T wave inversions in leads I and aVL but were present in 2022, ? incomplete LBBB in lead V6, but otherwise no ST changes. Initial troponin of 0.05 and up trended to 1.9. However, patient also presented with hypertensive crisis with initial BP of 219/135. Given history of multivessel CAD as well as strong cardiac family history, will workup for ACS as patient given aspirin 324 mg, clopidogrel 300 mg, and started on heparin drip. ? Cardiac cath planned for today 03/04 ? Continue heparin drip ? Aspirin 81 mg daily, clopidogrel 75 mg p.o. daily ? Atorvastatin 80 mg daily ? Carvedilol 6.25 mg twice daily ? Morphine and nitroglycerin as needed for pain #Hypertensive emergency Initial BP of 219/135 and elevated troponins that likely due to ACS but may be contributed to by hypertensive crisis. Has home Rx of metoprolol tartrate 50 mg twice daily. ? Recommend to reduce MAP gradually by 10-20% in first hour and 5-15% over next 23 hours ? Or target blood pressure of <180/<120 mmHg for first hour and <160/<110 mmHg for next 23 hours ? Carvedilol 6.25 mg p.o. twice daily #Hyperlipidemia TC 195, TG 206, LDL 108, and HDL 46. ? Continue atorvastatin 80 mg daily # Type 2 diabetes mellitus A1c 6.9. ? Blood sugar goal of 140-180 ? SSI, Accu-Cheks every 6 hours ----- - Patient's care was discussed with my attending physician, Dr. Sari Aguilar MD Internal Medicine PGY-3 Attending Provider Attestation/Addendum I have personally seen and examined the patient separately on the above date of service and discussed the plan of care with the resident. I reviewed the resident Dr. Cm Archibald consultation progress note and agree with the resident findings and plan in the note above and have also edited the documentation to reflect my findings and plan. Patient denies any current chest pain and chest pressure. Given the NSTEMI with a peak troponin of 11.0 patient has been scheduled for left heart cardiac catheterization this afternoon has been n.p.o. after breakfast. Heparin drip to be continued through the left heart cardiac attrition. Continue aspirin 81 mg daily, Biaxin 5 mg once daily, high intensity statin no beta-nenita as the heart rate is mildly low at 50 to 60 bpm. As noted in the initial HPI patient has been noncompliant with his medication including basic aspirin 81 mg once daily and has stopped taking his Brilinta at the dual antiplatelet long-term ago. He does have a history of CAD with multiple stents to RCA, LCx, diagonal as well as the LAD with a total of at least 6 stents. Patient is at high risk for CAD with in-stent restenosis. Alfie Guo M.D. Interventional Cardiology
--- NOTE | 2025-03-04 17:00 | PC.NURSE ---
FEMORAL SHEATH (VENOUS ACCESS) TO THE RIGHT GROIN AREA REMOVED AT 1847. MANUAL PRESSURE APPLIED FOR ABOUT 15 MINUTES UNTIL HEMOSTASIS ACHIEVED AT 1853. PATIENT TOLERATED PROCEDURE WELL WITHOUT COMPLICATIONS. SURGICAL SITE ASYMPTOMATIC, NO ACTIVE BLEEDING, NO HEMATOMA NOTED ON RIGHT GROIN AREA. RIGHT FEMORAL PULSE NOTED WITH NO CHANGES IN STRENGTH AND QUALITY, RIGHT DORSALIS PEDIS PULSE NOTED WITH NO CHANGES STRENGTH AND QUALITY. DISTAL CAPPILARRY REFILL <3 SECONDS (Baseline, Right Toes). NO NOTED CHANGES IN COLOR OR TEMPERATURE TO RIGHT LOWER EXTREMITY. PATIENT DENIES GENERAL AND LOCALIZED PAIN. NO TINGLING OR NUMBNESS FELT TO RIGHT LOWER EXTREMITY. SURGICAL SITE COVERED WITH GAUZE AND TEGADERM DRESSING, WHICH REMAIN DRY AND INTACT. WILL CONTINUE TO MONITOR.
[2025-03-04] MEDS: INSULIN LISPRO (AdmeLOG) 1 UNIT/0.01 ML UNIT SC (18:24)
--- NOTE | 2025-03-04 19:40 | PD.CARDCATH ---
Cardiac Cath Procedure Procedure Name Date of procedure: 03/04/2025 combination operator: Alfie Cadena Procedures performed: 1. Successful complex PCI of the severe 99% in-stent restenosis of the proximal OM1 stent with NC, [place] balloons and eventually placed a 3.0 x 15 mm new Medtronic [place] stent. Excellent results with no complications 2. Left heart cardiac catheterization left and right coronary angiograms as well as left ventriculogram 3. Moderate conscious sedation for 60 to 90 minutes 4. Ultrasound-guided access of the right femoral artery Procedure Narrative Summary: NSTEMI type II with a peak troponin of around 11 1. LHC showed severe extensive in-stent restenosis of the proximal OM1 with 99% ISR with SOFIYA II flow, also severe 80% - 90% stenosis of the distal RCA stent with poor outflow as he already has 100% RPL and 95% RPDA lesions which were not intervened, moderate in-stent restenosis of 50 to 60% of the diagonal stent as well as mild to moderate in-stent restenosis of the mid LAD stent. Rest of the arteries by the show mild diffuse disease. 2. LVEF appeared normal at 55 to 60%. LVEDP was elevated at 30 mmHg. No significant transvalvular aortic gradient. Recommendations: 1. Recommended patient to take aspirin 81 mg once daily and Plavix 75 mg without fail as he will continue to have worsening in-stent restenosis. 2. Continue aggressive medical management with the high intensity statin as well as beta-nenita and recommend risk factor modification 3. Continue medical treatment for the distal RCA ISR as patient has severe disease distal to the ISR even in 2022 which was not amenable to PCI. 4. Patient recommended not to lift more than 5 pounds of weight for the next 7 to 10 days and follow-up in the clinic for further evaluation. Alfie Guo M.D. Interventional Cardiology
--- NOTE | 2025-03-04 20:51 | PC.NURSE ---
REPORT CALLED TO THANG MONIQUE. PATIENT TO LAY FLAT UNTIL 11PM
[2025-03-04] MEDS: ATORVASTATIN CALCIUM 20 MG TABLET 80 MG PO (21:19)
--- NOTE | 2025-03-04 21:50 | PC.NURSE ---
patient returned from cathlab, no pain, tolerating laying flat and educated to remain flat til 11pm.
[2025-03-05] VITALS (10 sets, daily range): BP systolic 136–164; BP diastolic 79–93; PULSE 64–82; RESP 15–98; TEMP 35.9–36.9; O2SAT 95–97
[2025-03-05 06:48] LABS: Basophils % (Auto) 0 % (0-2.5); Eosinophils # (Auto) 0.2 Thou/mm3 (0.0-0.5); Eosinophils % (Auto) 2 % (0-10); Hematocrit 45.2 % (41.0-53.0); Hemoglobin 15.7 g/dL (13.5-16.0); Immature Granulocytes % (Auto) 0 % (0-0); Immature Granulocytes Auto 0.02 Thou/mm3 (0.00-0.00); Lymphocytes # (Auto) 2.4 Thou/mm3 (1.0-4.8); Lymphocytes % (Auto) 25 % (10-50); Mean Corpuscular HGB Conc 34.7 g/dl (31.0-37.0); Mean Corpuscular Hemoglobin 31.1 pg (25.0-35.0); Mean Corpuscular Volume 90 fL (80-100); Monocytes # (Auto) 0.7 Thou/mm3 (0.0-0.8); Monocytes % (Auto) 7 % (0-12); Neutrophils # (Auto) 6.3 Thou/mm3 (1.8-7.7); Neutrophils % (Auto) 65 % (37-80); Nucleated Red Blood Cell % 0 /100 WBC (0); Platelet Count 205 Thou/mm3 (140-440); RDW Standard Deviation 44.5 fL (35.1-43.9); Red Blood Count 5.05 Miln/mm3 (4.50-5.90); White Blood Count 9.7 Thou/mm3 (3.8-10.6)
[2025-03-05 07:25] LABS: Alanine Aminotransferase 26 U/L (10-49); Albumin/Globulin Ratio 1.7 (1.2-2.2); Alkaline Phosphatase 93 U/L (46-116); Anion Gap 9 (7-16); Aspartate Amino Transferase 27 U/L (0-34); BUN/Creatinine Ratio 11 Ratio (12-20); Bilirubin,Total 1.8 mg/dL (0.3-1.2); Blood Urea Nitrogen 18 mg/dL (9-23); Carbon Dioxide 26.1 mMol/L (20.0-31.0); Chloride 105 mMol/L (98-107); Creatinine (Component) 1.6 mg/dL (0.6-1.3); Globulin 2.3 gm/dL (2.3-3.5); Glucose 172 mg/dL (74-106); Magnesium 2.1 mg/dL (1.6-2.6); Osmolality,Calculated 285 (275-295); Phosphorous 2.9 mg/dL (2.4-5.1); Potassium 3.8 mMol/L (3.4-5.1); Sodium 140 mMol/L (136-145); Total Protein 6.3 gm/dL (5.7-8.2); eGFR 51 See Note
[2025-03-05] MEDS: PANTOPRAZOLE 40 MG TABLET PO (08:11)
[2025-03-05] MEDS: LOSARTAN POTASSIUM 25 MG TABLET 50 MG PO (08:11)
[2025-03-05] MEDS: carVEDILOL 3.125 MG TABLET 6.25 MG PO ×2 (08:12→16:35)
[2025-03-05] MEDS: CLOPIDOGREL BISULFATE 75 MG TABLET PO (08:12)
[2025-03-05] MEDS: INSULIN GLARGINE (Lantus) 5 UNIT/0.05 ML (PER 5 UNITS) SC (08:12)
[2025-03-05] MEDS: SENNA TABLET 1 TAB PO (08:12)
[2025-03-05] MEDS: ASPIRIN EC 81 MG TABEC PO (08:12)
[2025-03-05] MEDS: INSULIN LISPRO (AdmeLOG) 1 UNIT/0.01 ML UNIT SC ×3 (08:13→16:43)
[2025-03-05] MEDS: POTASSIUM CHLORIDE 20 mEq TABCR PO (09:33)
--- NOTE | 2025-03-05 11:22 | ESPR_ITS ---
Documentation for date of: 03/05/25 Subjective Subjective Interval history: Patient seen and examined. Patient had a heart cath yesterday very complex. Today patient is feeling well. No complains. Exam Vital Signs Temp Pulse Resp BP Pulse Ox O2 Del Method 97.6 F 81 20 159/93 H 95 Room Air 03/05/25 08:00 03/05/25 08:12 03/05/25 08:00 03/05/25 08:12 03/05/25 08:00 03/05/25 08:00 Narrative Exam General: AOx3, mild distress, able to speak full sentences on room air HEENT: NC/AT, mucous membranes moist, bilateral sclera anicteric Cardiovascular: regular rate and rhythm, S1/S2 present, no murmurs appreciated Pulmonary: clear to auscultation bilaterally, no rales/rhonchi/wheezes Abdominal: soft, non-tender, non-distended, no rebound/guarding, normal bowel sounds present Musculoskeletal: normal ROM, no peripheral edema Skin: warm and dry, intact, no rashes Neuro: CN II-XII intact, no focal deficits Objective Labs 03/05/25 06:05 03/05/25 06:05 Labs: Laboratory Results - last 24 hr 03/05/25 06:05 WBC 9.7 RBC 5.05 Hgb 15.7 Hct 45.2 MCV 90 MCH 31.1 MCHC 34.7 RDW Std Deviation 44.5 H Plt Count 205 Neut % (Auto) 65 Lymph % (Auto) 25 [place] % (Auto) 7 Eos % (Auto) 2 Baso % (Auto) 0 Neut # (Auto) 6.3 Lymph # (Auto) 2.4 [place] # (Auto) 0.7 Eos # (Auto) 0.2 Baso # (Auto) 0.0 Immature Gran # (Auto) 0.02 H Absolute Nucleated RBC 0.00 Immature Gran % 0 Nucleated RBC % 0 Sodium 140 Potassium 3.8 Chloride 105 Carbon Dioxide 26.1 Anion Gap 9 BUN 18 Creatinine 1.6 H Estim Creat Clear Calc 66.0 eGFR 51 L BUN/Creatinine Ratio 11 L Glucose 172 H Calculated Osmolality 285 Calcium 9.0 Corrected Calcium 9.0 Phosphorus 2.9 Magnesium 2.1 Total Bilirubin 1.8 H AST 27 ALT 26 Alkaline Phosphatase 93 Total Protein 6.3 Albumin 4.0 Globulin 2.3 Albumin/Globulin Ratio 1.7 Quality Measures Quality Measures none Assessment & Plan Assessment Current Active Medications: Generic Name Dose Route Start Last Admin Trade Name Freq PRN Reason Stop Dose Admin Acetaminophen 650 mg 03/02/25 10:21 Acetaminophen 325 Mg Tablet PO 04/01/25 10:20 Q6H PRN Mild Pain 1-3 or Fever >100.3 Aspirin 81 mg 03/03/25 09:00 03/05/25 08:12 Aspirin Ec 81 Mg Tabec PO 04/02/25 08:59 81 mg QDAY LIONEL Administration Atorvastatin Calcium 80 mg 03/04/25 21:00 03/04/25 21:19 Atorvastatin Calcium 20 Mg Tablet PO 04/03/25 20:59 80 mg HS LIONEL Administration Carvedilol 6.25 mg 03/02/25 17:30 03/05/25 08:12 Carvedilol 3.125 Mg Tablet PO 04/01/25 17:29 6.25 mg BIDWM LIONEL Administration Clopidogrel Bisulfate 75 mg 03/03/25 09:00 03/05/25 08:12 Clopidogrel Bisulfate 75 Mg Tablet PO 04/02/25 08:59 75 mg QDAY LIONEL Administration Dextrose 50 ml 03/02/25 10:27 Dextrose 50%-Water Inj 50 Ml Syringe IV 04/01/25 10:26 Q15MIN PRN BG <50 OR BG <70 & pt unresponsive Dextrose 25 ml 03/02/25 10:27 Dextrose 50%-Water Inj 50 Ml Syringe IV 04/01/25 10:26 Q15MIN PRN BG 50-70 responsive npo pt Glucagon 1 mg 03/02/25 10:27 Glucagon Inj 1 Mg Vial IM Q15MIN PRN BG <70, and no IV access Heparin Sodium/Dextrose 25,000 unit in 250 mls @ 9.955 mls/hr 03/03/25 11:15 03/04/25 07:00 Heparin In D5w Ivpb IV 03/17/25 11:14 Infused .Q24H LIONEL Titration Protocol 9.3 UNITS/KG/HR Insulin Glargine 5 unit 03/03/25 10:30 03/05/25 08:12 Insulin Glargine (Lantus) 5 Unit/0.05 Ml (Per 5 Units) SC 04/02/25 10:29 5 unit QDAY LIONEL Administration Insulin Human Lispro 0 unit 03/04/25 21:15 03/05/25 08:13 Insulin Lispro (Admelog) 1 Unit/0.01 Ml Unit SC 04/03/25 21:14 3 unit ACHS LIONEL Administration Protocol Losartan Potassium 50 mg 03/03/25 09:00 03/05/25 08:11 Losartan Potassium 25 Mg Tablet PO 04/02/25 08:59 50 mg QDAY LIONEL Administration Morphine Sulfate 1 mg 03/03/25 09:40 Morphine Sulf Inj 10 Mg/Ml Vial IVP 03/07/25 10:20 Q6HR PRN PAIN SCALE 7-10 (Severe Nitroglycerin 0.4 mg 03/02/25 08:31 03/02/25 09:03 Nitroglycerin 0.4 Mg Subl Btl #25 SL 0.4 mg Q5M PRN Administration CHEST PAIN Ondansetron HCl 4 mg 03/02/25 08:31 03/02/25 09:02 Ondansetron Inj 2 Mg/Ml Inj 2 Ml IV 4 mg Q1HR PRN Administration PERSISTENT NAUSEA OR VOMITING Pantoprazole Sodium 40 mg 03/02/25 10:30 03/05/25 08:11 Pantoprazole 40 Mg Tablet PO 04/01/25 10:29 40 mg QDAY LIONEL Administration Sennosides 1 tab 03/03/25 09:00 03/05/25 08:12 Senna Tablet PO 04/02/25 08:59 1 tab QDAY LIONEL Administration Protocol Plan Ramón Orourke is a 54-year-old male with medical history of multivessel CAD (status-post stenting of LCx and RCA in [address] Alvarez), hypertension, hyperlipidemia, and type 2 diabetes who presented on 03/02/2025 with chest pain. Admitted and cardiology consulted for ACS workup. #CAD s/p PCI of LAD #History of multivessel CAD status post stents in LCx and RCA in 2022 Assessment: Patient presents with typical cardiac chest pain that is described as pressure and pain, left-sided that radiates to left arm, worsened with exertion, improved with rest/nitroglycerin. Has history of multivessel CAD status post stenting in LCx and RCA in [address] Alvarez as well as strong cardiac family history. EKG showed T wave inversions in leads I and aVL but were present in 2022, ? incomplete LBBB in lead V6, but otherwise no ST changes. Initial troponin of 0.05 and up trended to 1.9. However, patient also presented with hypertensive crisis with initial BP of 219/135. Given history of multivessel CAD as well as strong cardiac family history, will workup for ACS as patient given aspirin 324 mg, clopidogrel 300 mg, and started on heparin drip. [facility] details: LHC showed severe extensive in-stent restenosis of the proximal OM1 with 99% ISR with SOFIYA II flow, also severe 80% - 90% stenosis of the distal RCA stent with poor outflow as he already has 100% RPL and 95% RPDA lesions which were not intervened, moderate in-stent restenosis of 50 to 60% of the diagonal stent as well as mild to moderate in-stent restenosis of the mid LAD stent. Rest of the arteries by the show mild diffuse disease. LVEF appeared normal at 55 to 60%. LVEDP was elevated at 30 mmHg. No significant transvalvular aortic gradient. Recommendations: -Recommended patient to take aspirin 81 mg once daily and Plavix 75 mg without fail as he will continue to have worsening in-stent restenosis. -Continue aggressive medical management with the high intensity statin as well as beta-nenita and recommend risk factor modification -Continue medical treatment for the distal RCA ISR as patient has severe disease distal to the ISR even in 2022 which was not amenable to PCI. -Patient recommended not to lift more than 5 pounds of weight for the next 7 to 10 days and follow-up in the clinic for further evaluation and drink 1 gallon of water a day for 2 days. Follow up at clinic with a CMP and mag and phos levels. ----- - Patient's care was discussed with my attending physician, Dr. Sari Aguilar MD Internal Medicine PGY-3 Attending Provider Attestation/Addendum I have personally seen and examined the patient separately on the above date of service and discussed the plan of care with the resident. I reviewed the resident Dr. Cm Archibald consultation progress note and agree with the resident findings and plan in the note above and have also edited the documentation to reflect my findings and plan. Alfie Guo M.D. Interventional Cardiology
--- NOTE | 2025-03-05 14:59 | ESDS_ITS ---
Planned Discharge Date 03/05/25 DS: Providers Provider Date of admission: 03/02/25 10:21 Primary care physician: SOPHY Fagan Admitting Provider: Bulmaro Pope MD Attending Provider on Admission: Bulmaro Pope MD Consults: 03/02/25 10:04 Consult to Cardiology Stat Comment: Consulting Provider: Alfie Guo Attending Provider on DC: Susan Ruff MD Discharging Provider: Susan Ruff MD DS: Diagnosis Problem List Completed Was Problem List Reviewed/Reconciled?: Yes Hospital Course Hospital Course Hospital course: Summary: Patient is a 54-year-old male with a past medical history of hypertension, hyperlipidemia, diabetes mellitus type 2 anv-dwvzsrn-bcrbynuxz (Janumet), previous CAD w/ multi-vessel disease s/p stents of the RCA and LCx was admitted on 03/02/2025 with typical cardiac chest pain who subsequently diagnosed with new NSTEMI type II and underwent PCI of LAD. ER Course: On arrival, patient was reported to have hypertensive urgency with a blood pressure of 219/135, HR 68, RR 20, spO 95% RA. Polycythemia noted on CBC w/ hgb of 16.9, Na 140, Potassium 3.7, BUN 16, Cr 1.2, GFR >60, Glucose 217, total bili 1.6, AST and ALT within normal limits. EKG sinus rhythm with possible q waves; Troponin 0.052, repeat 1.937, BNP 175. CXr: unremarkable Medication: Aspirin 324 mg PO, Morphine, Nitroglycerin 0.4 mg, and NS Cardiology consulted: follows Dr. Alvarez-->Dr. Guo covering for Dr. Alvarez. Hospital Course: During hospital course, patient was started on high intensity Atorvastatins 80 mg HS, Asprin 81 mg once daily, Plavix 75 mg once daily, and Carvedilol 6.25 mg BID added as well. Given past medical history of CAD w/ multi-vessel disease, typical cardiac chest pain, and trending troponin that peaked at 11, patient was scheduled for cath. Left heart catherization shown sever stenosis of LAD w/ placement of new stent using wolverine balloons. LVEF appeared normal at 55 to 60%. LVEDP was elevated at 30 mmHg. No significant transvalvular aortic gradient. Losartan 50 mg qday started given patient's hypertensive emergency that resolved in patient. Please continue Losartan 50 mg once daily upon d ischarge. Diabetes Mellitus type II, non insulin dependent started on sliding scale and long acting insulin in hospital. Resume home medication for DM type 2 upon dishcarge. A1c of 6.9 (february 2025). Please follow up with sleep study give polycythemia for possible sleep apnea as outpatient. Instructions: -Please continue all your medication as prescribed, including all cardiac medication - Follow up at clinic with a CMP and mag and phos levels. -Patient recommended not to lift more than 5 pounds of weight for the next 7 to 10 days and follow-up in the clinic for further evaluation. -Please drink 1 gallon of water a day for 2 days. 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 stable for home #NSTEMI type II #CAD PCI s/p stent of LAD (03/04/2025) #History of Multi-vessel disease RCA LCx s/p stents 2022 #Chest Pain, resolved #Incomplete LBBB #Hyperlipidemia #Hypertension #Hypertensive emergency, resolved #Diabetes mellitus type 2, [id number]-lckziflwn #Polycythemia - The patient's plan was discussed with attending Dr. Toshia Ruff MD PGY1 Internal Medicine Time Spent with Patient Time attestation: Total time spent providing and/or coordinating discharge services: at least 30 minutes of care and coordination Time spent: Greater than 30 minutes Exam Vital Signs Temp Pulse Resp BP Pulse Ox O2 Del Method 97.3 F 67 20 146/81 H 95 Room Air 03/05/25 12:00 03/05/25 12:00 03/05/25 12:00 03/05/25 12:00 03/05/25 12:00 03/05/25 12:00 Narrative Exam General Appearance: Alert & Oriented X3, well-nourished male who is lying in bed in no acute distress HEENT: Skull symmetrical and atraumatic. Conjunctivae pink and moist. Pupils equal, round, reactive to light and accommodation (PERRL). External ear without lesion or discharge. Straight, nares patient, mucosa pink, no discharge. No thyroid nodule appreciated. No cervical lymphadenopathy. Cardio: Normal Rate and Rhythm with S1 and S2 heart sounds murmurs or extra heart difficult to auscultate given body habitus. NO bruits on carotid auscultation. No peripheral edema or cyanosis. Lungs: Symmetric with good expansion. Chest and back non-tender. Breath sounds vesicular without crackles, wheezing or rhonchi Abdomen: Non-tender, Non-distended, Normal Reactive Bowel Sounds Neuro: Alert, cooperative, oriented to person, place, and time. Speech clear. CN grossly intact. Upper motor strength 5/5 and Lower motor strength 5/5. Sensation intact. Discharge Plan Plan Patient Disposition: HOME (Self Care) Patient condition on transfer: Stable Care Plan Goals: Instructions: -Please continue all your medication as prescribed, including all cardiac m edication - Follow up at clinic with a CMP and mag and phos levels. -Patient recommended not to lift more than 5 pounds of weight for the next 7 to 10 days and follow-up in the clinic for further evaluation. -Please drink 1 gallon of water a day for 2 days. 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, [place] [address], Prescriptions/Referrals Prescriptions/Med Rec: New clopidogrel 75 mg Tablet 75 mg PO QDAY 30 Days Qty: 30 0RF carvedilol 3.125 mg Tablet 6.25 mg PO BIDWM 30 Days Qty: 30 0RF losartan 25 mg Tablet 50 mg PO QDAY 30 Days Qty: 60 0RF dapagliflozin propanediol [Farxiga] 5 mg tablet 5 mg PO QDAY 30 Days Qty: 30 0RF Continued Janumet 50-1,000 mg tablet 1 tab PO BID Patient Comments: TAKE 1 TABLET BY MOUTH TWICE A DAY WITH MEALS FOR 30 DAYS (DME) blood-glucose meter [Accu-Chek Tiffanie Plus Meter] Misc See Rx Instructions .Route Qty: 1 0RF Rx Instructions: As directed (DME) Accu-Chek Tiffanie Plus test strp Strip See Rx Instructions .Route Qty: 50 0RF Rx Instructions: As directed (DME) lancing device with lancets [Accu-Chek FastClix Lancing Dev] Kit See Rx Instructions .Route Qty: 1 0RF Rx Instructions: As directed (DME) pen needle, diabetic [Pen Needle] 31 gauge x 3/16 needle See Rx Instructions .Route Qty: 100 0RF Rx Instructions: As directed atorvastatin 80 mg tablet 80 mg PO QDAY Patient Comments: TAKE 1 TABLET BY MOUTH EVERY DAY FOR 30 DAYS nitroglycerin 0.4 mg tablet, sublingual 0.4 mg BUCCAL .3x PRN (Reason: chest pain) Patient Comments: PLACE 1 TABLET UNDER TONGUE EVERY 5 MINS, UP TO 3 DOSES NEEDED FOR CHEST PAIN aspirin 81 mg tablet,chewable 81 mg PO QDAY Patient Comments: TAKE 1 TABLET BY MOUTH EVERY DAY FOR 30 DAYS Discontinued Brilinta 90 mg tablet 90 mg PO BID Qty: 60 0RF atorvastatin 40 mg Tablet 40 mg PO QDAY 30 Days Qty: 30 0RF amlodipine 10 mg tablet 10 mg PO QDAY 30 Days Qty: 30 0RF metoprolol tartrate 50 mg tablet 50 mg PO BID dapagliflozin propanediol [Farxiga] 5 mg Tablet 5 mg PO QDAY Referrals: Alfie Guo MD [Physician] - Alejandra Alvarez MD [Physician] - Telma Snyder FNP [Primary Care Provider] - Patient/Caregiver Discharge Instructions Education Materials: Coronary Stents, Coronary Angioplasty Stenting Dc, Cardiac Catheterization Dc, Preventing Surgical Site Infections, Procedural Sedation Print Language: Russian Activity Restrictions/Additional Instructions: Please call to schedule a follow up appointment with Dr. Guo, (Tiler), in his office within one week upon discharge. Telephone number: [phone] Please call to schedule a follow up appointment with your primary care doctor 1- 2 weeks after discharge so he/she can make further recommendations about your overall health condition. DO NOT drive or operate any motor vehicle, heavy equipment or machinery within 24 hours of your sedation. DO NOT perform any activity that requires you to be fully alert in the next 24 hour within 24 hours of your sedation DO NOT sign any documentation that requires a full understanding of what you are signing for within 24 hours of your sedation Do not perform any strenuous physical activity in the next 5 days. Avoid activities that require bending at your waist in the next 5 days. Avoid lifting objects 5 pounds or heavier in the next 5 days. Do not strain your bowel. If you experience constipation, drink plenty of fluids, especially water, if not contraindicated by your doctor. In addition, add foods rich in fiber. Should you experience constipation, talk to your doctor about other options that might help you alleviate it. Keep your blood pressure under control. If you take blood pressure medication, continue to take it if not contraindicated by your doctor. Doing so, helps to prevent post-complications such as bleeding. Take your new/previous medication as directed by the doctor. If there is no changes, continue to take medication at your usual time. After 5 days, start increasing the level of physical activity gradually for the subsequent 5 days. You can resume your shower routine 24hrs post procedure but keep your dressing clean and dry. Remove the dressing placed on the surgical incision 48 hours after discharge. After removing your dressing, you can gently clean your surgical site with soap and water and pad dry it. DO NOT rub site to prevent complication such as b leeding. DO NOT apply any lotions, creams, or powders on the surgical site until your skin completely heels (5 days or more). Should you experience any type of complications on your extremity such as pain, change in color, temperature, a bruise that increases in size and color at the surgical site (Groin Area), a lump (Hard or soft) that develops and increases in size at the surgical site (Groin Area), numbness, or changes in sensation, Chest pain, or shortness of breath; PLEASE GO TO THE NEAREST EMERGENCY ROOM IMMEDIATELY. Look out for signs of infection such as tenderness, redness, or drainage to your surgical site (Groin Area); if any, report them to your primary care doctor immediately. Should you have any other questions or concerns on regards today?s procedure; feel free to contact us to Marketing Communications Manager Department . It is important to follow a heart healthy diet. Avoid foods saturated with fat, food and drinks with added sugar. Eat a well-balanced diet with plenty of fresh fruits, vegetables and whole grains if not contraindicated by your primary care provider. Choose water to hydrate yourself over any other type of drinks. Talk to your primary doctor for further advice for a diet that fits your nutritional body requirements and for an adequate exercise program to keep and improve your overall health condition. ALWAYS FOLLOW/CONSIDER YOUR PRIMARY CARE DOCTOR'S MEDICAL ADVICE BEFORE MAKING ANY CHANGES TO YOUR DIET OR LEVELS OF ACTIVITY. Should you have any other questions or concerns on regards today?s procedure; feel free to contact us to Marketing Communications Manager Department . Stand Alone Forms: Rebekah Award Info., Patient Portal Info Letter Discharge Order Discharge Orders: Discharge (Routine); Ordered 03/05/25 Ordered By: Susan Ruff Quality Discharge Quality Measures VTE prophylaxis Attestestation MD Attestation I reviewed labs, imaging, EKG, home medications and prior available records. Face to face evaluation was performed by me. I have personally examined the patient and discussed assessment and plan with the IM team. I reviewed the resident note and agree with the plan with exceptions as below. Hypertensive emergency Non-STEMI Uncontrolled diabetes mellitus with hyperglycemia Essential hypertension Continue aspirin and Plavix. Continue atorvastatin Status post cardiac catheterization that showed in-stent restenosis status new stent to proximal OM1 Continue Coreg and losartan Continue home diabetes medications Troponin peaked at 11 Avoid tobacco use No lift of more than pounds in the next 7 to 10 days. Follow-up with cardiology as outpatient Time spent is 40 minutes. More than 50% of the time was spent on patient education and coordination of care.
--- NOTE | 2025-03-05 17:45 | PC.NURSE ---
Dr. Newman notified of BP 164/91 for discharge. Verbalized to give carvedilol and recheck bp. Recheck bp was 173/101, Dr. Blandon notified and ordered to hold discharge for 30 min to recheck bp. BP check after 30 min was 150/91 ok to discharge per Dr. Blandon. Pt and verbalized understanding of post PCI care and to take tegaderm off 48hr after discharge. Pt and verbalized understanding of follow up appts. Dr. Shant Alvarez at bedside and verbalized will follow up out patient in 1 week and encourage fluid intake, ok to discharge. 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
== END 2025-03-05 18:01 | disposition home or self-care (01) | DRG 322 ==
LOC: SERX 08:59 → SERHOLD 10:36 → S2NX 21:28
PROVIDERS: Internal Medicine Cardiovascular Disease; Nurse Practitioner Primary Care; Student in an Organized Health Care Education/Training Program; Admitting Provider Student in an Organized Health Care Education/Training Program; Emergency Provider Family Medicine; PCP Nurse Practitioner Family; Visit Provider Student in an Organized Health Care Education/Training Program
DX: I21.4 Non-ST elevation (NSTEMI) myocardial infarction (principal); I16.1 Hypertensive emergency; T82.855A Stenosis of coronary artery stent, initial encounter; I10 Essential (primary) hypertension; I25.10 Atherosclerotic heart disease of native coronary artery without angina pectoris; I25.2 Old myocardial infarction; I16.0 Hypertensive urgency; D75.1 Secondary polycythemia; E11.65 Type 2 diabetes mellitus with hyperglycemia; Z95.5 Presence of coronary angioplasty implant and graft; Z79.84 Long term (current) use of oral hypoglycemic drugs; E78.00 Pure hypercholesterolemia, unspecified; F41.9 Anxiety disorder, unspecified; I44.7 Left bundle-branch block, unspecified; Y83.1 Surgical operation with implant of artificial internal device as the cause of abnormal reaction of the patient, or of later complication, without mention of misadventure at the time of the procedure; Z79.02 Long term (current) use of antithrombotics/antiplatelets; Z79.82 Long term (current) use of aspirin; Z79.899 Other long term (current) drug therapy; Z87.891 Personal history of nicotine dependence; Z91.148 Patient's other noncompliance with medication regimen for other reason; Z95.1 Presence of aortocoronary bypass graft
CPT/HCPCS: 36415; 71045; 80053; 80061; 80307; 83036; 83735; 83880; 84100; 84443; 84484; 85025; 85347; 85610; 85730; 93005; 96360; 96372; 99152; 99153; 99291; A4649; C1725; C1769; C1874; C1887; C1894; J0171; J0360; J0461; J1643; J1644; J1815; J2250; J2270; J2310; J2371; J2405; J3010; J3490; J7040; Q9967; A9270

== ENCOUNTER 2025-03-19 14:47 | Emergency (ER) | payer BC, MEDICAID, SELFPAY ==
[2025-03-19 14:48] VITALS: BMI 35.1
--- NOTE | 2025-03-19 14:52 | XR_ITS ---
Examination: AP chest single view Technique one AP portable upright chest single view INDICATIONS: Onset chest pain today. FINDINGS: Normal heart size. No pneumonia or pulmonary edema. Moderate osteopenia IMPRESSION: No active disease
--- NOTE | 2025-03-19 14:52 | EKG_ITS ---
[facility] Test Date: 2025-03-19 Pat Name: RACHEL DUMONT Department: Room: - Gender: Male Comptometer Operator: : 1970 Requested By: David Buck (KELLIE) Order Number: [id number] Reading MD: David Buck (RETAIL SALES CONSULTANT) Measurements Intervals [place] Rate: 159 P: [place]: QRS: -49 QRSD: 99 T: 113 QT: 291 QTc: 474 Interpretive Statements ATRIAL FLUTTER/TACHYCARDIA WITH RAPID VENTRICULAR RESPONSE PATTERN CONSISTENT WITH PULMONARY DISEASE INFERIOR MYOCARDIAL INFARCTION , OF INDETERMINATE AGE [40+ ms Q WAVE AND/OR ST/T ABNORMALITY IN II/aVF] CRITICAL TEST RESULT Compared to ECG 03/02/2025 07:41:25 Sinus rhythm no longer present Myocardial infarct finding still present /store/S0/[id number]
--- NOTE | 2025-03-19 15:08 | PD.EDCHEST ---
ED Chest Pain RME/HPI General Chief Complaint: Chest Pain Stated Complaint: CHEST FLUTTER X 1410; A-FIB; 1 NITRO 1430 Time Seen by Provider: 03/19/25 15:14 Arrival date/time: 03/19/25 14:47 Limitations: no limitations RME / HPI RME / HPI narrative: 54 year old male with history of CAD s/p PCI, hypertension, diabetes, hyperlipidemia, presents to the ED for evaluation of chest pain and heart fluttering sensation. States he was doing yard-work when his symptoms suddenly began at 14:10 huors. Reportedly took one 0.4mg SL Nitroglycerin with no improvement, prompting ED visit. No other associated symptoms reported. Related Data Home Medications ?Medication ?Instructions ?Recorded ?Confirmed sitagliptin phosphate 50 1 tab PO BID 07/15/23 03/02/25 mg-metformin 1,000 mg tablet (Janumet) aspirin 81 mg chewable tablet 81 mg PO QDAY 03/02/25 03/02/25 atorvastatin 80 mg tablet 80 mg PO QDAY 03/02/25 03/02/25 nitroglycerin 0.4 mg sublingual 0.4 mg buccal .3x PRN chest pain 03/02/25 03/02/25 tablet Previous Rx's ?Medication ?Instructions ?Recorded blood sugar diagnostic (Accu-Chek #50 ea 07/20/23 Tiffanie Plus test strips) blood-glucose meter (Accu-Chek #1 ea 07/20/23 Tiffanie Plus Meter) lancing device with lancets kit #1 ea 07/20/23 (Accu-Chek FastClix Lancing Device kit) pen needle, diabetic 31 gauge x #100 ea 07/21/23/ (Pen Needle) carvedilol 3.125 mg tablet 6.25 mg (2 x 3.125 mg) PO BIDWM 03/05/25 CAD 30 days #30 tabs clopidogrel 75 mg tablet 75 mg PO QDAY 30 days #30 tabs 03/05/25 dapagliflozin propanediol 5 mg 5 mg PO QDAY CHF 30 days #30 tabs 03/05/25 tablet (Farxiga) losartan 25 mg tablet 50 mg (2 x 25 mg) PO QDAY 03/05/25 Hypertension 30 days #60 tabs Allergies Allergy/AdvReac Type Severity Reaction Status Date / Time No Known Allergies Allergy Verified 03/19/25 14:53 Review of Systems Review of Systems Narrative Review of Systems: GEN: No fever, no chills, no weight loss EYES: No discharge, no visual changes, no pain HEENT: No ear pain, no congestion, no sore throat PULM: No shortness of breath, no cough, no congestion CV: + chest pain, + palpitations GI: No nausea, no vomiting, no diarrhea, no pain, no constipation : No frequency, no urgency, no dysuria MUSC/SKEL: No joint pain, no back pain SKIN: No rash NEURO: No weakness, no headache Past Medical History Past Medical History CARDIAC: Positive Angina, Coronary Artery Disease, Hypercholesterolemia and Hypertension RESPIRATORY: Positive Pneumonia (per pt about 4years ago) GASTROINTESTINAL: Positive Gastrointestinal Disorders (Hernia) ENDOCRINE: Positive Diabetes Mellitus Type 2 OTHER HISTORY: Positive Hospitalization Family History FAMILY HISTORY: Positive Family Cardiac Disorders and Family Cancer Surgical History SURGICAL: Positive Coronary Stent and Angiogram Social History SMOKING STATUS: Never smoker SECOND HAND EXPOSURE: No SUBSTANCE USE: amphetamines (Patient is a former amphetamine user, quit 9 months ago. ) and other (Remote history of meth and cocaine use) ED Exam General Limitations: Present no limitations General appearance: Present alert and in no apparent distress Head Head exam: Present atraumatic Eye Eye exam: Present normal appearance, PERRL and EOMI ENT ENT exam: Present normal exam, normal oropharynx and mucous membranes moist Neck Neck exam: Present normal inspection, full ROM and trachea midline Chest Chest inspection: Present normal inspection and symmetric chest wall rise Respiratory Respiratory exam: Present normal lung sounds bilaterally Cardiovascular Cardiovascular exam: Present tachycardia (rate 160's on telemetry ) and normal heart sounds Abdominal Exam Abdominal exam: Present soft and normal bowel sounds Extremities Exam Extremities exam: Present normal inspection and full ROM Back Exam Back exam: Present normal inspection and full ROM Neurological Exam Neurological exam: Present alert, oriented X3 and CN II-XII intact Psychiatric Psychiatric exam: Present normal affect and normal mood Skin Skin exam: Present warm, dry, intact and normal color Course Quality Measures none Orders Category Date Time Status EKG (ED ONLY) *Do not use* NOW Care 03/19/25 14:52 Completed EKG (ED ONLY) *Do not use* NOW Care 03/19/25 15:22 Completed EKG (ED Only) Stat Exams 03/19/25 14:52 Draft EKG (ED Only) Stat Exams 03/19/25 15:22 Ordered XR chest 1V Stat Exams 03/19/25 14:52 Completed B-Type Natriuretic Peptide Stat Lab 03/19/25 15:10 Completed CBC Stat Lab 03/19/25 15:10 Completed Comprehensive Metabolic Panel Stat Lab 03/19/25 15:10 Completed Drug Screen,Urine Stat Lab 03/19/25 16:29 Completed Magnesium Stat Lab 03/19/25 15:10 Completed Partial Thromboplastin Time Stat Lab 03/19/25 15:10 Completed Prothrombin Time with INR Stat Lab 03/19/25 15:10 Completed Troponin I Stat Lab 03/19/25 15:10 Completed Adenosine 6mg Inj [Adenocard Inj] Med 03/19/25 15:15 Discontinued 12 mg IVP X1 ONE Adenosine 6mg Inj [Adenocard Inj] Med 03/19/25 15:15 Discontinued 6 mg IVP X1 ONE Vital Signs Vital signs: Vital Signs Temperature 98.9 F 03/19/25 15:25 Pulse Rate 173 H 03/19/25 15:25 Respiratory Rate 16 03/19/25 15:25 Blood Pressure 123/95 H 03/19/25 15:25 Pulse Oximetry (%) 94 L 03/19/25 15:25 Oxygen Delivery Method Room Air 03/19/25 15:25 Pulse ox is 94% on room air which is adequate. Procedures -ED Procedure Comment Cardioversion Indication: Patient presenting with SVT, rate 160;s on telemetry unresponsive to vagal maneuvers. Attempted vasalva maneuver, coratid pressure, and applying ice to face/neck. Procedure: The patient was placed on continuous cardiac and pulse oximetry monitoring. Baseline vital signs were obtained and reviewed. A peripheral IV was in place. Informed consent was obtained verbally, including discussion of risks (transient chest discomfort, flushing, transient asystole, or failure to convert). Emergency resuscitation equipment was available at bedside. A rapid IV push of 6 mg adenosine was administered followed by 10 mL normal saline flush. The rhythm converted to sinus rhythm. Post-procedure monitoring showed stable vitals and no complications. The patient tolerated the procedure well. Complications: None. Chest Pain MDM Narrative MDM Narrative:: Patient was treated for SVT with Adenocard Patient responded well Was watched for about an hour without any recurrence Patient was free of pain He never actually had chest pain His workup came back unremarkable Patient advised to follow-up with his heel trimmer I did not elect not to put him on any medication except for what he is on at home Typically if he has recurrence of SVT then he has to be followed by EPS and meanwhile can be put on Rythmol but I do not think it is a good idea to put him on Rythmol right away from now Patient was discharged good condition Plan assessment SVT Plan Follow-up with cardiology See procedure note. Patient data External records reviewed:: [facility] previous records (I reviewed admission from 03/02/2025 through 03/05/2025 ) Clinical information provided by:: patient Social determinants that could affect healthcare access:: housing Patient has the following chronic illnesses:: CAD s/p PCI, hypertension, diabetes, hyperlipidemia How is presenting disease/condition affected by chronic disease/condition?: exacerbated by Evaluation data The following diagnostics were reviewed and interpreted by me:: lab results, radiology exam(s) and EKG tracing(s) (EKG #1 @ 14:54 hours shows SVT, rate 159, LVH, Q-wave in inferior wall. EKG # 2 after cardioversion at 15:22 hours shows sinus rhythm, rate 86, left axis deviation, Q-waves inferior wall old NC, LVH, no ischemia, normal QT. ) Lab and/or radiology exams considered but not ordered:: None Interpretation Summary: Ordering Physician: Heber SHAFFER),David HOPKINS Date of Service: 03/19/25 Procedure(s): XR chest 1V Accession Number(s): [id number] cc: Heber SHAFFER),David HOPKINS; Rob Guaman MD~ Examination: AP chest single view Technique one AP portable upright chest single view INDICATIONS: Onset chest pain today. FINDINGS: Normal heart size. No pneumonia or pulmonary edema. Moderate osteopenia IMPRESSION: No active disease Dictated By: Rob Guaman MD Signed By: <Electronically signed by Rob Guaman MD in OV> 03/19/25 1539 Medications / Prescriptions Medications or Prescriptions considered but not ordered:: None Medication administrations:: Medication Administration History Discontinued Medications Adenosine (Adenosine Inj 3 Mg/Ml Vial) 6 mg IVP X1 ONE Stop: 03/19/25 15:16 Last Admin: 03/19/25 15:25 Dose: 6 mg Documented By: NERY Adenosine (Adenosine Inj 3 Mg/Ml Vial) 12 mg IVP X1 ONE Stop: 03/19/25 15:16 Last Admin: 03/19/25 16:12 Dose: Not Given Documented By: NERY Non-Admin Reason: Change of Condition See above Consultations Consultation(s) initiated? (list below): No Diagnosis Chest Pain Differential Diagnosis: pneumothorax, stable angina, unstable angina pectoris, st elevation myocardial infarction, costochondritis, chest pain and other (SVT, Atrial flutter, atrial fibrillation, WPW ) Most likely diagnosis given after review of the tests above:: SVT Admission Indicated Admission indicated?: not indicated Admission Request Was there a request for admission?: No Disposition Plan Disposition Plan: Discharge Discharge Attestation Discharge Attestation: The patient and all family members were given an opportunity to ask questions and understood the discharge instructions. Discharge instructions specifically effects, indications for sooner follow up or return to the emergency department, and the expected course of current diagnosis. Patient condition: Stable Critical Care Time Critical Care Time Critical Care Time: Yes Total Critical Care Time (min.): 30 Attestation: The high probability of sudden, clinically significant deterioration in the patient's condition required the highest level of my preparedness to intervene urgently. The services I provided to this patient were to treat and/or prevent clinically significant deterioration. Services included the following: chart data review, reviewing nursing notes and/or old charts, documentation time, treasury management sales consultant collaboration regarding findings and treatment options, medication orders and management, direct patient care, vital sign assessments and ordering, interpreting and reviewing diagnostic studies and lab tests. Aggregate critical care time includes only time during which I was engaged in work directly related to the patient's care, as described above, whether at bedside or elsewhere in the Emergency Department. It did not include time spent performing other reported procedures or the services of residents, students, nurses or physician assistants. Discharge Plan Plan Patient Disposition: HOME (Self Care) Prescriptions/Referrals Prescriptions/Med Rec: No Action Janumet 50-1,000 mg tablet 1 tab PO BID Patient Comments: TAKE 1 TABLET BY MOUTH TWICE A DAY WITH MEALS FOR 30 DAYS (DME) blood-glucose meter [Accu-Chek Tiffanie Plus Meter] Misc See Rx Instructions .Route Qty: 1 0RF Rx Instructions: As directed (DME) Accu-Chek Tiffanie Plus test strp Strip See Rx Instructions .Route Qty: 50 0RF Rx Instructions: As directed (DME) lancing device with lancets [Accu-Chek FastClix Lancing Dev] Kit See Rx Instructions .Route Qty: 1 0RF Rx Instructions: As directed (DME) pen needle, diabetic [Pen Needle] 31 gauge x 3/16 needle See Rx Instructions .Route Qty: 100 0RF Rx Instructions: As directed atorvastatin 80 mg tablet 80 mg PO QDAY Patient Comments: TAKE 1 TABLET BY MOUTH EVERY DAY FOR 30 DAYS nitroglycerin 0.4 mg tablet, sublingual 0.4 mg BUCCAL .3x PRN (Reason: chest pain) Patient Comments: PLACE 1 TABLET UNDER TONGUE EVERY 5 MINS, UP TO 3 DOSES NEEDED FOR CHEST PAIN aspirin 81 mg tablet,chewable 81 mg PO QDAY Patient Comments: TAKE 1 TABLET BY MOUTH EVERY DAY FOR 30 DAYS clopidogrel 75 mg Tablet 75 mg PO QDAY 30 Days Qty: 30 0RF carvedilol 3.125 mg Tablet 6.25 mg PO BIDWM 30 Days Qty: 30 0RF losartan 25 mg Tablet 50 mg PO QDAY 30 Days Qty: 60 0RF dapagliflozin propanediol [Farxiga] 5 mg tablet 5 mg PO QDAY 30 Days Qty: 30 0RF Referrals: Telma Snyder FNP [Primary Care Provider] - In 1 week Problem List Clinical Impression: SVT (supraventricular tachycardia) Patient/Caregiver Discharge Instructions Discharge Activity: activity as tolerated Education Materials: Supraventricular Tachycardia, Calcium Channel Blockers Dc Additional Instructions: Make sure to follow-up with your heel trimmer in the next 3 to 5 days Print Language: Polish Stand Alone Forms: Rebekah Award Info., Patient Portal Info Letter
--- NOTE | 2025-03-19 15:22 | EKG_ITS ---
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
[2025-03-19 15:25] VITALS: BP 123/95; PULSE 173; PULSE 91; RESP 16; TEMP 37.2; O2SAT 94
[2025-03-19] MEDS: ADENOSINE INJ 3 MG/ML VIAL 6 MG IVP (15:25)
[2025-03-19 15:30] LABS: Basophils % (Auto) 0 % (0-2.5); Eosinophils # (Auto) 0.4 Thou/mm3 (0.0-0.5); Eosinophils % (Auto) 5 % (0-10); Hematocrit 48.8 % (41.0-53.0); Hemoglobin 17.6 g/dL (13.5-16.0); Immature Granulocytes % (Auto) 0 % (0-0); Immature Granulocytes Auto 0.02 Thou/mm3 (0.00-0.00); Lymphocytes # (Auto) 2.8 Thou/mm3 (1.0-4.8); Lymphocytes % (Auto) 29 % (10-50); Mean Corpuscular HGB Conc 36.1 g/dl (31.0-37.0); Mean Corpuscular Hemoglobin 31.8 pg (25.0-35.0); Mean Corpuscular Volume 88 fL (80-100); Monocytes # (Auto) 0.7 Thou/mm3 (0.0-0.8); Monocytes % (Auto) 7 % (0-12); Neutrophils # (Auto) 5.7 Thou/mm3 (1.8-7.7); Neutrophils % (Auto) 59 % (37-80); Nucleated Red Blood Cell % 0 /100 WBC (0); Platelet Count 268 Thou/mm3 (140-440); RDW Standard Deviation 42.2 fL (35.1-43.9); Red Blood Count 5.54 Miln/mm3 (4.50-5.90); White Blood Count 9.6 Thou/mm3 (3.8-10.6)
[2025-03-19 15:44] LABS: Partial Thromboplastin Time 27.3 Seconds (22.0-36.0); Prothrombin Time 11.1 Seconds (9.0-12.2)
[2025-03-19 15:46] LABS: B-Type Natriuretic Peptide 136 pg/mL (0-100)
[2025-03-19 15:48] LABS: Alanine Aminotransferase 27 U/L (10-49); Albumin, Serum 4.8 gm/dL (3.5-5.0); Albumin/Globulin Ratio 1.7 (1.2-2.2); Alkaline Phosphatase 120 U/L (46-116); Anion Gap 11 (7-16); Aspartate Amino Transferase 20 U/L (0-34); BUN/Creatinine Ratio 16 Ratio (12-20); Bilirubin,Total 2.1 mg/dL (0.3-1.2); Blood Urea Nitrogen 28 mg/dL (9-23); Calcium 9.9 mg/dL (8.3-10.6); Calcium (Corrected) 9.9 mg/dL (8.5-10.1); Chloride 108 mMol/L (98-107); Creatinine (Component) 1.7 mg/dL (0.6-1.3); Estimated Creatinine Clearance 60.8 mL/min (>60); Globulin 2.8 gm/dL (2.3-3.5); Glucose 109 mg/dL (74-106); Osmolality,Calculated 293 (275-295); Potassium 3.9 mMol/L (3.4-5.1); Sodium 144 mMol/L (136-145); Total Protein 7.6 gm/dL (5.7-8.2); eGFR 48 See Note
[2025-03-19 16:58] LABS: Amphetamine/Methamp Scrn,U Negative (Negative); Barbiturate Screen,Urine Negative (Negative); Benzodiazepines Screen,Urine Negative (Negative); Benzoylecgonine Screen, Ur Negative (Negative); Fentanyl Screen,Urine Negative (Negative); Opiate Screen,Urine Negative (Negative); THC Screen,Urine Negative (Negative)
[2025-03-19 17:05] VITALS: BP 147/90; PULSE 83; RESP 17; TEMP 36.6; O2SAT 94
== END 2025-03-19 17:25 | disposition home or self-care (01) ==
PROVIDERS: Nurse Practitioner Primary Care; Emergency Provider Emergency Medicine; PCP Nurse Practitioner Family
DX: I47.10 Supraventricular tachycardia, unspecified (principal); I10 Essential (primary) hypertension; I25.10 Atherosclerotic heart disease of native coronary artery without angina pectoris; E11.9 Type 2 diabetes mellitus without complications; E78.5 Hyperlipidemia, unspecified
CPT/HCPCS: 36415; 71045; 80053; 80307; 83735; 83880; 84484; 85025; 85610; 85730; 93005; 99291; J0153